=== PATIENT | female | born 1985 | race Caucasian/White ===

== ENCOUNTER 2023-05-23 20:40 | Inpatient (IN) | payer OTHER ==
--- NOTE | 2023-05-23 21:25 | ED ---
General Adult HPI - General Chief complaint: Seizure Stated complaint: Seizure Time Seen by Provider: 05/23/23 20:43 Source: patient, EMS, RN notes reviewed Limitations: altered mental status - History of Present Illness Initial comments: Patient is a pleasant 37-year-old female presenting to the emergency department with reported seizure. Patient states her found her having a seizure. Patient states she frequently gets seizures when she stops taking Xanax and heroin. Patient stopped taking Xanax and heroin yesterday. Patient complains of headache. Patient denies any injury. Patient feels achy all over as well. Patient states he normally feels like this when withdrawing. - Related Data Home Medications Medication Instructions Recorded Confirmed No Known Home Medications 05/23/23 05/23/23 Allergies Allergy/AdvReac Type Severity Reaction Status Date / Time No Known Allergies Allergy Verified 05/23/23 22:39 Review of Systems ROS Statement: Those systems with pertinent positive or pertinent negative responses have been documented in the HPI. ROS Other: All systems not noted in ROS Statement are negative. Constitutional: Denies: fever Eyes: Denies: eye pain ENT: Denies: ear pain Respiratory: Denies: cough Cardiovascular: Denies: chest pain Endocrine: Denies: fatigue Gastrointestinal: Reports: nausea Neurological: Reports: headache. Denies: weakness Past Medical History Additional Past Medical History / Comment(s): seizures History of Any Multi-Drug Resistant Organisms: None Reported Past Surgical History: Tubal Ligation Past Psychological History: Anxiety, Depression Smoking Status: Never smoker Past Alcohol Use History: None Reported Past Drug Use History: Heroin, Prescription Drug Abuse General Exam Limitations: altered mental status General appearance: alert, in no apparent distress Head exam: Present: atraumatic Eye exam: Present: normal appearance, PERRL, EOMI ENT exam: Present: normal oropharynx Neck exam: Present: normal inspection. Absent: tenderness, meningismus Respiratory exam: Present: normal lung sounds bilaterally Cardiovascular Exam: Present: regular rate, normal rhythm GI/Abdominal exam: Present: soft. Absent: tenderness Extremities exam: Present: normal inspection Neurological exam: Present: alert, CN II-XII intact. Absent: motor sensory deficit Expanded Neurological exam: Present: protecting the airway Speech: Present: fluid speech Cranial nerves: EOM's Intact: Normal Motor strength exam: RUE: 5, LUE: 5, RLE: 5, LLE: 5 Eye Response: (4) open spontaneously Motor Response: (6) obeys commands Verbal Response: (5) oriented Psychiatric exam: Present: normal affect, normal mood Skin exam: Present: normal color Course Vital Signs 05/23/23 05/23/23 05/23/23 20:43 21:15 22:00 Temperature 98.5 F Pulse Rate 75 80 68 Respiratory 16 18 18 Rate Blood Pressure 117/78 116/88 128/90 O2 Sat by Pulse 93 L 95 96 Oximetry EKG Findings - EKG Results: EKG: interpreted by ERMD, sinus rhythm, normal axis, normal QRS, normal ST/T Medical Decision Making - Medical Decision Making Was pt. sent in by a medical professional or institution (, PA, INTERNET ASSESSOR, urgent care, hospital, or fpc...) When possible be specific @ -No Did you speak to anyone other than the patient for history (EMS, parent, family, police, friend...)? What history was obtained from this source @ -No Did you review nursing and triage notes (agree or disagree)? Why? @ -I reviewed and agree with nursing and triage notes Were old charts reviewed (outside hosp., previous admission, EMS record, old EKG, old radiological studies, urgent care reports/EKG's, fpc records)? Report findings @ -No old charts were reviewed Differential Diagnosis (chest pain, altered mental status, abdominal pain women, abdominal pain men, vaginal bleeding, weakness, fever, dyspnea, syncope, headache, dizziness, GI bleed, back pain, seizure, CVA, palpatations, mental health, musculoskeletal)? @ -Differential Seizure: Recurrent seizure disorder, febrile seizure, alcohol withdrawal, stimulants, meningitis, encephalitis, intercranial hemorrhage, intracranial tumor, stroke, eclampsia, thyrotoxicosis, hypocalcemia, hyponatremia, hypernatremia, hypomagnesemia, psychogenic, this is not meant to be an all-inclusive list. EKG interpreted by me (3pts min.). @ -As above X-rays interpreted by me (1pt min.). @ -None done CT interpreted by me (1pt min.). @ -CT scan of the brain shows no acute process U/S interpreted by me (1pt. min.). @ -None done What testing was considered but not performed or refused? (CT, X-rays, U/S, labs)? Why? @ -None What meds were considered but not given or refused? Why? @ -None Did you discuss the management of the patient with other professionals (professionals i.e. , PA, INTERNET ASSESSOR, lab, RT, psych nurse, social services manager, structural steel ironworker, teacher, professional security officer, caser up)? Give summary @ -Case was discussed with Dr. Shafer, who will admit covering hospital call. Was smoking cessation discussed for >3mins.? @ -No Was critical care preformed (if so, how long)? @ -No Were there social determinants of health that impacted care today? How? (Homelessness, low income, unemployed, alcoholism, drug addiction, transportation, low edu. Level, literacy, decrease access to med. care, penitentiary, rehab)? @ -No Was there de-escalation of care discussed even if they declined (Discuss DNR or withdrawal of care, Hospice)? DNR status @ -No What co-morbidities impacted this encounter? (DM, HTN, Smoking, COPD, CAD, Cancer, CVA, ARF, Chemo, Hep., AIDS, mental health diagnosis, sleep apnea, morbid obesity)? @ -None Was patient admitted / discharged? Hospital course, mention meds given and route, prescriptions, significant lab abnormalities, going to OR and other pertinent info. @ -Patient reevaluated. Patient is still having nausea and emesis. Patient is drowsy. Patient will be admitted for fluids and monitoring for benzodiazepine withdrawal. Patient states she is taking approximately 4 mg daily of Xanax. Undiagnosed new problem with uncertain prognosis? @ -No Drug Therapy requiring intensive monitoring for toxicity (Heparin, Nitro, Insulin, Cardizem)? @ -No Were any procedures done? @ -No Diagnosis/symptom? @ -Seizure, benzodiazepine withdrawal, opiate withdrawal Acute, or Chronic, or Acute on Chronic? @ -Acute, acute, acute Uncomplicated (without systemic symptoms) or Complicated (systemic symptoms)? @ -Default Side effects of treatment? @ -No Exacerbation, Progression, or Severe Exacerbation? @ -No Poses a threat to life or bodily function? How? (Chest pain, USA, ID, pneumonia, PE, COPD, DKA, ARF, appy, cholecystitis, CVA, Diverticulitis, Homicidal, Suicidal, threat to staff... and all critical care pts) @ -No - Lab Data Result diagrams: 05/23/23 22:34 05/23/23 22:00 Lab Results 05/23/23 05/23/23 Range/Units 22:00 22:34 WBC 6.5 (3.8-10.6) k/uL RBC 5.03 (3.80-5.40) m/uL Hgb 14.3 (11.4-16.0) gm/dL Hct 43.7 (34.0-46.0) % MCV 86.9 (80.0-100.0) fL MCH 28.4 (25.0-35.0) pg MCHC 32.7 (31.0-37.0) g/dL RDW 13.9 (11.5-15.5) % Plt Count 295 (150-450) k/uL MPV 8.4 Neutrophils % 74 % Lymphocytes % 19 % Monocytes % 5 % Eosinophils % 1 % Basophils % 0 % Neutrophils # 4.9 (1.3-7.7) k/uL Lymphocytes # 1.3 (1.0-4.8) k/uL Monocytes # 0.3 (0-1.0) k/uL Eosinophils # 0.0 (0-0.7) k/uL Basophils # 0.0 (0-0.2) k/uL Sodium 143 (137-145) mmol/L Potassium 3.8 (3.5-5.1) mmol/L Chloride 110 H (98-107) mmol/L Carbon Dioxide 17 L (22-30) mmol/L Anion Gap 16 mmol/L BUN 10 (7-17) mg/dL Creatinine 0.38 L (0.52-1.04) mg/dL Est GFR (CKD-EPI)AfAm >90 (>60 ml/min/1.73 sqM) Est GFR (CKD-EPI)NonAf >90 (>60 ml/min/1.73 sqM) Glucose 115 H (74-99) mg/dL Calcium 10.1 (8.4-10.2) mg/dL Magnesium 2.4 H (1.6-2.3) mg/dL Total Bilirubin 0.6 (0.2-1.3) mg/dL AST 55 H (14-36) U/L ALT 51 H (4-34) U/L Alkaline Phosphatase 115 (38-126) U/L Total Protein 8.6 H (6.3-8.2) g/dL Albumin 4.9 (3.5-5.0) g/dL Serum Alcohol <10 mg/dL Disposition Clinical Impression: Generalized seizure, Opiate withdrawal, Benzodiazepine withdrawal Disposition: ADMITTED IP TO THIS [facility] Instructions (If sedation given, give patient instructions): Seizure/Epilepsy Discharge Instructions & Follow-Up Is patient prescribed a controlled substance at d/c from ED?: No Referrals: None,Stated [Primary Care Provider] - 1-2 days Time of Disposition: 23:24
[2023-05-23 22:35] LABS: ALT 51 U/L (4-34); AST 55 U/L (14-36); African American GFR (CKD) >90 (>60 ml/min/1.73 sqM); Albumin 4.9 g/dL (3.5-5.0); Alcohol <10 mg/dL; Alkaline Phosphatase 115 U/L (38-126); Anion Gap 16 mmol/L; Blood Urea Nitrogen 10 mg/dL (7-17); Calcium 10.1 mg/dL (8.4-10.2); Carbon Dioxide 17 mmol/L (22-30); Chloride 110 mmol/L (98-107); Glucose 115 mg/dL (74-99); Magnesium 2.4 mg/dL (1.6-2.3); Non-African American GFR(CKD) >90 (>60 ml/min/1.73 sqM); Potassium 3.8 mmol/L (3.5-5.1); Sodium 143 mmol/L (137-145); Total Bilirubin 0.6 mg/dL (0.2-1.3); Total Protein 8.6 g/dL (6.3-8.2)
[2023-05-23] MEDS: LORazepam 2 MG/ML INJ IV STA (22:36)
[2023-05-23] MEDS: SODIUM CHLORIDE 0.9% 1,000 ML IV STA (22:36)
[2023-05-23] MEDS: ONDANSETRON 4 MG/2 ML VIAL IVP STA (22:51)
[2023-05-23 22:58] LABS: Basophils % (A) 0 %; Eosinophils % (A) 1 %; HCT 43.7 % (34.0-46.0); HGB 14.3 gm/dL (11.4-16.0); Lymphocytes # (A) 1.3 k/uL (1.0-4.8); Lymphocytes % (A) 19 %; MCH 28.4 pg (25.0-35.0); MCHC 32.7 g/dL (31.0-37.0); MCV 86.9 fL (80.0-100.0); Mean Platelet Volume 8.4; Monocytes # (A) 0.3 k/uL (0-1.0); Monocytes % (A) 5 %; Neutrophils # (A) 4.9 k/uL (1.3-7.7); Neutrophils % (A) 74 %; Platelet Count 295 k/uL (150-450); RBC 5.03 m/uL (3.80-5.40); RDW 13.9 % (11.5-15.5); WBC 6.5 k/uL (3.8-10.6)
--- NOTE | 2023-05-23 23:14 | CT ---
EXAMINATION TYPE: CT brain wo con DATE OF EXAM: 05/23/2023 COMPARISON: None. HISTORY: seizure CT DLP: 1091.2 mGycm. Automated Exposure Control for Dose Reduction was Utilized. TECHNIQUE: CT scan of the head is performed without contrast. FINDINGS: There is no acute intracranial hemorrhage, mass effect, or midline shift identified. The ventricles and sulci are within normal limits in size. [place]-white matter differentiation is [place]. The globes are intact bilaterally. Mild mucosal thickening involving ethmoid sinuses bilaterally and right sphenoid sinus. IMPRESSION: No acute intracranial hemorrhage or midline shift is seen.
[2023-05-23] MEDS ORDERED: NALOXONE 0.4 MG/ML 1 ML VIAL IV PRN (23:24)
[2023-05-23] MEDS ORDERED: LORazepam 2 MG/ML INJ IV PRN (23:27)
[2023-05-23] MEDS: SODIUM CHLORIDE 0.9% 500 ML 500 ML IV STA (23:50)
[2023-05-24] MEDS: METOCLOPRAMIDE 5 MG/ML 2 ML VIAL IVP STA (00:23)
[2023-05-24] MEDS ORDERED: METOCLOPRAMIDE 5 MG/ML 2 ML VIAL IVP PRN (01:37)
--- NOTE | 2023-05-24 02:01 | P.HPIM ---
History of Present Illness H&P Date: 05/23/23 Chief Complaint: polysubstance abuse wwithdrawal 37-year-old female with history of polysubstance abuse and dependence benzos and opiates Patient provides very limited history due to being an distress from repeated nausea vomiting along with severe generalized aches and pain. She reports addiction to benzos and heroin she is trying to quit cold turkey which she has done in the past usually precipitates seizures episodes. She claims that today her found her having a seizure as she quit using the substances 2 days ago. For which she brought her to the hospital for evaluation Patient reports diffuse body aches chills, diffuse abdominal pain cramps, repeated nausea vomiting no hematemesis no coffee-ground vomiting no GI bleeding denies any fevers denies any cough denies any chest pain denies any trouble breathing. She reports that this is typical of her withdrawals when she quits drug of abuse Workup in the ED was done CT scan of the brain showed no acute intracranial pathology blood work reflected anion gap metabolic acidosis and mildly elevated liver enzymes Patient does admit to polysubstance abuse including heroin and Xanax She denies any sick known sick contacts denies any recent travel. Her has no symptoms of infection or GI upset like she is experiencing review of systems Pertinent positives as noted in HPI. All other systems were reviewed and are negative on exam Constitutional: Patient very restless and uncomfortable repeated nausea vomiting Eyes: Anicteric sclerae, moist conjunctiva, Pupils equal round reactive to light slightly dilated for room brightness ENMT: NC/AT Oropharynx clear, no erythema, or exudates Neck: Supple, no masses, or JVD No carotid bruits No thyromegaly Lungs: Clear to auscultation Clear to percussion Normal respiratory effort, no accessory muscle use Cardiovascular: Heart bradycardia No murmurs, gallops, or rubs No peripheral edema Abdominal: Soft Diffuse discomfort to deep palpation below, no guarding, rebound or rigidity Abdomen moving with respiration Normoactive bowel sounds Extremities: No digital cyanosis No clubbing Pedal pulses intact and symmetrical Radial pulses intact and symmetrical No calf tenderness Psychiatric: Alert and oriented to person, place and time Neuro Muscles Strength 5/5 in all 4 extremities Sensation to light touch grossly present throughout Past Medical History Additional Past Medical History / Comment(s): seizures History of Any Multi-Drug Resistant Organisms: None Reported Past Surgical History: Tubal Ligation Past Psychological History: Anxiety, Depression Smoking Status: Never smoker Past Alcohol Use History: None Reported Past Drug Use History: Heroin, Prescription Drug Abuse Medications and Allergies Home Medications Medication Instructions Recorded Confirmed Type No Known Home Medications 05/23/23 05/23/23 History Allergies Allergy/AdvReac Type Severity Reaction Status Date / Time No Known Allergies Allergy Verified 05/23/23 22:39 Physical Exam Vitals: Vital Signs Temp Pulse Resp BP Pulse Ox 05/24/23 01:00 54 L 18 140/77 99 05/24/23 00:00 52 L 18 141/78 99 05/23/23 23:45 48 L 18 99 05/23/23 22:00 68 18 128/90 96 05/23/23 21:15 80 18 116/88 95 05/23/23 20:43 98.5 F 75 16 117/78 93 L Intake and Output 05/23/23 05/23/23 05/24/23 14:59 22:59 06:59 Other: Weight 90.718 kg Results CBC & Chem 7: 05/23/23 22:34 05/23/23 22:00 Labs: Abnormal Lab Results - Last 24 Hours (Table) 05/23/23 Range/Units 22:00 Chloride 110 H (98-107) mmol/L Carbon Dioxide 17 L (22-30) mmol/L Creatinine 0.38 L (0.52-1.04) mg/dL Glucose 115 H (74-99) mg/dL Magnesium 2.4 H (1.6-2.3) mg/dL AST 55 H (14-36) U/L ALT 51 H (4-34) U/L Total Protein 8.6 H (6.3-8.2) g/dL Assessment and Plan Assessment: 37-year-old female with polysubstance abuse admits to benzos and heroin coming in trying to quit drug of abuse for the past 2 days claims that she had withdrawal seizure today I discussed case with ED doctor accepted the admission for refractory nausea vomiting with anion gap metabolic acidosis with anticipated length of stay more than 2 midnights Polysubstance abuse with severe withdrawal symptoms Refractory nausea vomiting with dehydration and anion gap metabolic acidosis Sinus bradycardia suspected secondary to repeated forceful nausea vomiting Withdrawal seizure secondary to withdrawal from benzos CT scan of the brain no acute intracranial pathology Continue with seizure precautions Plan Supportive care Ativan 1 mg every 6 hours as needed Zofran 4 mg IV push every 8 hours as needed Compazine 5 mg IV push every 4 hours as needed Benadryl 50 mg IV push once to control symptoms of severe nausea vomiting Very mildly elevated liver enzymes with AST 55 ALT 51 alk phos normal 115 bilirubin normal 0.6 Symptomatic control with Bentyl 10 mg p.o. 3 times daily as needed Toradol 50 mg IV push every 6 hours as needed Protonix IV push 40 mg twice daily due to unable to tolerate p.o. intake Aggressive IV fluid hydration patient received 1.5 L boluses in the ED will add another 1 L bolus then continue with normal saline at 130 cc/h Sinus bradycardia EKG shows no other acute ST changes this is suspected to be secondary to forceful repeated vomiting rule out other underlying cardiac causes. Check echocardiogram Cardiac monitoring If heart rate drops below 35 then will consider dopamine drip and ICU admission, and cardiology consult Patient counseled to quit drugs of abuse Unable to offer clonidine at this time due to sinus bradycardia White count unremarkable 6.5 hemoglobin 14.3 unremarkable Sodium 143 potassium 3.8 BUN 10 creatinine 0.38 Magnesium 2.4 Monitor electrolytes closely Serum alcohol level less than 10 Lactic acid 1.7 Full code DVT prophylaxis mechanical
[2023-05-24] MEDS: SODIUM CHLORIDE 0.9% 1,000 ML IV ONE (02:03)
[2023-05-24] MEDS: PANTOPRAZOLE 40 MG/10 ML VIAL IVP SCH (02:04)
[2023-05-24] MEDS: PANTOPRAZOLE 40 MG TABLET PO SCH (02:05)
[2023-05-24] MEDS: SODIUM CHLORIDE 0.9% 1,000 ML IV SCH (02:05)
[2023-05-24] MEDS: diphenhydrAMINE 50 MG/ML 1 ML VIAL IVP STA ×2 (04:31→20:57)
[2023-05-24 04:36] LABS: Cocaine Screen,Urine Not Detected (NotDetected); Phencyclidine Screen,Urine Not Detected (NotDetected); Urn Cannabinoid Scrn Detected (NotDetected)
[2023-05-24 04:37] LABS: Amphetamine Screen,Urine Not Detected (NotDetected); Barbiturate Screen,Urine Not Detected (NotDetected); Benzodiazepines Screen,Urine Detected (NotDetected); Methadone Screen, Urine Not Detected (NotDetected); Opiate Screen,Urine Not Detected (NotDetected); Oxycodone Screen, Urine Not Detected (NotDetected); Tricyclic Antidepressant,Urine Not Detected (NotDetected)
[2023-05-24 04:46] LABS: Appearance,Urine Clear (Clear); Bacteria,Urine Occasional /hpf; Bilirubin,Urine Negative (Negative); Blood,Urine Negative (Negative); Color,Urine Yellow; Glucose,Urine (UA) Negative (Negative); Ketones,Urine 4+ (Negative); Leukocyte Esterase,Urine Negative (Negative); Mucus,Urine Rare /hpf; Nitrite,Urine Negative (Negative); Protein,Urine 1+ (Negative); Specific Gravity,Urine 1.028 (1.001-1.035); Squamous Epithelial Cell,Urine 1 /hpf (0-4); Urobilinogen,Urine <2.0 mg/dL (<2.0); WBC,Urine 1 /hpf (0-5)
[2023-05-24] MEDS ORDERED: LORazepam 2 MG/ML INJ IV PRN ×2 (07:53)
[2023-05-24] MEDS: ENOXAPARIN 40 MG/0.4 ML SYRINGE SQ SCH (10:08)
[2023-05-24] MEDS: PROCHLORPERAZINE INJ 10 MG/2 ML VIAL IVP PRN (10:08)
--- NOTE | 2023-05-24 10:48 | P.PN ---
Subjective Progress Note Date: 05/24/23 Hospital Course: 37-year-old female with history of polysubstance abuse, dependent on benzos and opiates, presenting with generalized aches and pains. Patient tried to quit opiates and benzos and he may have precipitated seizure 2 days ago. She presented for further evaluation. On arrival, vital signs within normal limits, CBC unremarkable, BMP shows bicarb of 17, anion gap 16, lactate 1.7, creatinine 0.38, magnesium 2.4, total bili 0.6, AST 55, ALT 51, ALP 115, urinalysis negative, urine toxicology positive for benzos and marijuana, negative serum alcohol. EKG shows normal sinus rhythm. Brain CT shows no acute process. Patient admitted for severe withdrawal symptoms. Subjective: Patient seen and examined at bedside. No acute events overnight. Continues to have nausea and vomiting. Blood pressure more stable Pertinent positives and negatives as discussed above, a complete review of systems was performed and all other systems are negative. Vitals Signs Reviewed. General: Nontoxic, no distress, appears at stated age Derm: Warm, dry Head: Atraumatic, normocephalic, symmetric Eyes: EOMI, no lid lag, anicteric sclera Mouth: No lip lesion, mucus membranes moist Cardiovascular: S1S2 reg, no murmur Lungs: CTA bilateral, no rhonchi, no rales, no accessory muscle use Abdominal: Soft, nontender to palpation, no guarding, no appreciable organomegaly Ext: No gross muscle atrophy, no edema, no contractures Neuro: CN II-XI grossly intact, no focal neuro deficits Psych: Alert, oriented, appropriate affect Data Reviewed Today: Pertinent Labs: Urine toxicology positive for benzos and marijuana, urinalysis negative for nitrites and leukocyte esterase., Repeat CBC and CMP pending, will be reviewed when available Imaging: No new imaging Assessment and Plan: Polysubstance abuse with severe withdrawal symptoms Refractory nausea and vomiting with dehydration and anion gap metabolic acidosis Sinus bradycardia Possible withdrawal seizure Mild transaminitis -Continue supportive care -Patient currently on dicyclomine 10 3 times daily as needed for dyspepsia, Toradol 15 mg IV every 6 hours as needed for pain -Ativan IV as needed per CIWA score for benzodiazepine withdrawals, monitor for sedation -IV Ativan as needed for seizure-like activity -Continue seizure precautions, and neuroassessments -Zofran IV as needed and Compazine IV as needed for nausea vomiting -Continue IV fluids at 130 cc an hour, normal saline, blood pressure now more stable -Sinus bradycardia likely in the setting of continuous nausea and vomiting, echocardiogram pending -TSH ordered -Hepatitis panel pending DVT ppx: Lovenox Code status: Full code Anticipated discharge place: Pending clinical course Anticipated discharge time: Pending clinical course Due to severe withdrawal symptoms, observation status changed to inpatient. Objective - Vital Signs Vital signs: Vital Signs Temp 98.5 F 05/23/23 20:43 Pulse 62 05/24/23 07:45 Resp 18 05/24/23 07:45 BP 81/27 05/24/23 07:45 Pulse Ox 96 05/24/23 07:45 FiO2 Intake & Output 05/23/23 05/24/23 05/24/23 18:59 06:59 18:59 Weight 90.718 kg - Labs CBC & Chem 7: 05/23/23 22:34 05/23/23 22:00 Labs: Abnormal Lab Results - Last 24 Hours (Table) 05/23/23 05/24/23 Range/Units 22:00 04:05 Chloride 110 H (98-107) mmol/L Carbon Dioxide 17 L (22-30) mmol/L Creatinine 0.38 L (0.52-1.04) mg/dL Glucose 115 H (74-99) mg/dL Magnesium 2.4 H (1.6-2.3) mg/dL AST 55 H (14-36) U/L ALT 51 H (4-34) U/L Total Protein 8.6 H (6.3-8.2) g/dL Urine Protein 1+ H (Negative) Urine Ketones 4+ H (Negative) Urine Bacteria Occasional H (None) /hpf Urine Mucus Rare H (None) /hpf U Benzodiazepines Scrn Detected H (NotDetected) U Marijuana (THC) Screen Detected H (NotDetected)
--- NOTE | 2023-05-24 11:13 | CA ---
Transthoracic Echo Report Name: Kat Alicia Age: 37 Gender: F : 1985 Exam Date: 05/24/2023 07:44 Exam Location: [place] [facility] Ht (in): 60 Wt (lb): 200 Ordering Physician: Jah Wiley MD Attending/Referring Phys: [id number], Inez Punching Machine Operator Lee Ann Almaguer RCS Procedure CPT: Indications: bradychardia Cardiac Hx: Technical Quality: Fair Contrast 1: Total Dose (mL): Contrast 2: Total Dose (mL): MEASUREMENTS (Male / Female) Normal Values 2D ECHO RV Internal Dim ED PLAX 3.2 cm LVOT Diameter 2.1 cm LV Diastolic Volume MOD BP 94.5 cm??? 67 - 155 / 56 - 104 cm??? LV Systolic Volume MOD BP 29.2 cm??? 22 - 58 / 19 - 49 cm??? LV Ejection Fraction MOD BP 69.1 % >= 55 % LV Cardiac Index MOD BP 1820.9 cm???/min???m??? LV Diastolic Volume MOD 4C 76.7 cm??? LV Systolic Volume MOD 4C 27.3 cm??? LV Ejection Fraction MOD 4C 64.3 % LV Cardiac Index MOD 4C 1374.4 cm???/min???m??? LV Diastolic Length 4C 8.0 cm LV Systolic Length 4C 6.6 cm LV Diastolic Volume MOD 2C 107.6 cm??? LV Systolic Volume MOD 2C 31.0 cm??? LV Ejection Fraction MOD 2C 71.2 % LV Cardiac Index MOD 2C 2135.7 cm???/min???m??? LV Diastolic Length 2C 8.8 cm LV Systolic Length 2C 6.7 cm LA Volume 31.8 cm??? 18 - 58 / 22 - 52 cm??? LA Volume Index 15.8 cm???/m??? 16 - 28 cm???/m??? DOPPLER AV Peak Velocity 141.4 cm/s AV Peak Gradient 8.0 mmHg AV Mean Velocity 94.5 cm/s AV Mean Gradient 4.1 mmHg AV Velocity Time Integral 29.7 cm LVOT Peak Velocity 126.0 cm/s LVOT Peak Gradient 6.4 mmHg LVOT Velocity Time Integral 26.3 cm LVOT Stroke Volume 92.6 cm??? LVOT Stroke Volume Index 49.6 ml/m??? LVOT Cardiac Index 2581.1 cm???/min???m??? AV Area Cont Eq vti 3.1 cm??? AV Area Cont Eq pk 3.1 cm??? MV Area PHT 3.1 cm??? Mitral E Point Velocity 93.9 cm/s Mitral A Point Velocity 78.1 cm/s Mitral E to A Ratio 1.2 MV Deceleration Time 245.5 ms TR Peak Velocity 268.9 cm/s TR Peak Gradient 28.9 mmHg Right Ventricular Systolic Press 32.7 mmHg PV Peak Velocity 121.9 cm/s PV Peak Gradient 5.9 mmHg FINDINGS Left Ventricle Left ventricular ejection fraction is estimated at 60-65 %. Left ventricular cavity size normal. Left ventricular wall thickness normal. No obvious regional wall motion abnormalities. Right Ventricle Normal right ventricular size and function. Right ventricular systolic pressure within normal limits. Right Atrium Normal right atrial size. Left Atrium Normal left atrial size. Mitral Valve Structurally normal mitral valve. No mitral stenosis. Trace mitral regurgitation. No evidence for mitral valve prolapse. Aortic Valve Aortic valve not well visualized. No aortic valve stenosis or regurgitation. Tricuspid Valve Structurally normal tricuspid valve. No tricuspid stenosis. Mild tricuspid regurgitation. Pulmonic Valve Structurally normal pulmonic valve. No pulmonic stenosis. No pulmonic regurgitation. Pericardium No pericardial effusion. Aorta Normal size aortic root and proximal ascending aorta. CONCLUSIONS Normal LVsize and wall thickness. LVEF 60% No obvious regional wall motion abnormalities. No significant valvular dysfunction No significant diastolic dysfunction RVSP estimated at 35 mmHg Previewed by: Dr Hernando Leiva (Electronically Signed) Final Date: 24 May 2023 11:12
[2023-05-24] MEDS: ALPRAZolam 0.5 MG TAB PO SCH (12:58)
[2023-05-24 20:06] LABS: T4, Free (Free Thyroxine) 1.71 ng/dL (0.78-2.19)
[2023-05-24] MEDS: ONDANSETRON 4 MG/2 ML VIAL IVP PRN (21:09)
[2023-05-24 22:36] LABS: Basophils % (A) 0 %; Eosinophils # (A) 0.1 k/uL (0-0.7); Eosinophils % (A) 1 %; HCT 39.4 % (34.0-46.0); HGB 13.7 gm/dL (11.4-16.0); Lymphocytes % (A) 21 %; MCH 29.9 pg (25.0-35.0); MCHC 34.7 g/dL (31.0-37.0); MCV 86.2 fL (80.0-100.0); Mean Platelet Volume 8.6; Monocytes # (A) 0.5 k/uL (0-1.0); Monocytes % (A) 5 %; Neutrophils # (A) 6.7 k/uL (1.3-7.7); Neutrophils % (A) 72 %; Platelet Count 272 k/uL (150-450); RBC 4.57 m/uL (3.80-5.40); RDW 14.3 % (11.5-15.5); WBC 9.3 k/uL (3.8-10.6)
[2023-05-24 22:56] LABS: ALT 42 U/L (4-34); AST 45 U/L (14-36); African American GFR (CKD) >90 (>60 ml/min/1.73 sqM); Albumin 4.6 g/dL (3.5-5.0); Alkaline Phosphatase 94 U/L (38-126); Anion Gap 13 mmol/L; Blood Urea Nitrogen 11 mg/dL (7-17); Carbon Dioxide 19 mmol/L (22-30); Chloride 111 mmol/L (98-107); Glucose 118 mg/dL (74-99); Non-African American GFR(CKD) >90 (>60 ml/min/1.73 sqM); Potassium 3.3 mmol/L (3.5-5.1); Sodium 143 mmol/L (137-145); Total Bilirubin 0.6 mg/dL (0.2-1.3); Total Protein 7.7 g/dL (6.3-8.2)
[2023-05-25] MEDS: POTASSIUM CHLORIDE ER 20 MEQ TAB.ER PO STA (09:27)
[2023-05-25 10:32] LABS: Basophils % (A) 0 %; Eosinophils # (A) 0.1 k/uL (0-0.7); Eosinophils % (A) 1 %; HGB 13.3 gm/dL (11.4-16.0); Lymphocytes # (A) 1.5 k/uL (1.0-4.8); Lymphocytes % (A) 18 %; MCHC 35.1 g/dL (31.0-37.0); MCV 85.5 fL (80.0-100.0); Mean Platelet Volume 9.3; Monocytes # (A) 0.4 k/uL (0-1.0); Monocytes % (A) 5 %; Neutrophils % (A) 75 %; Platelet Count 264 k/uL (150-450); RBC 4.44 m/uL (3.80-5.40); RDW 14.1 % (11.5-15.5)
[2023-05-25 11:14] LABS: ALT 49 U/L (4-34); AST 61 U/L (14-36); African American GFR (CKD) >90 (>60 ml/min/1.73 sqM); Albumin 4.3 g/dL (3.5-5.0); Alkaline Phosphatase 92 U/L (38-126); Anion Gap 13 mmol/L; Blood Urea Nitrogen 7 mg/dL (7-17); Calcium 8.6 mg/dL (8.4-10.2); Carbon Dioxide 21 mmol/L (22-30); Chloride 110 mmol/L (98-107); Glucose 125 mg/dL (74-99); Magnesium 2.3 mg/dL (1.6-2.3); Non-African American GFR(CKD) >90 (>60 ml/min/1.73 sqM); Sodium 144 mmol/L (137-145); Total Bilirubin 0.7 mg/dL (0.2-1.3); Total Protein 7.5 g/dL (6.3-8.2)
--- NOTE | 2023-05-25 14:35 | P.PN ---
Subjective Progress Note Date: 05/25/23 Hospital Course: 37-year-old female with history of polysubstance abuse, dependent on benzos and opiates, presenting with generalized aches and pains. Patient tried to quit opiates and benzos and he may have precipitated seizure 2 days ago. She presented for further evaluation. On arrival, vital signs within normal limits, CBC unremarkable, BMP shows bicarb of 17, anion gap 16, lactate 1.7, creatinine 0.38, magnesium 2.4, total bili 0.6, AST 55, ALT 51, ALP 115, urinalysis negative, urine toxicology positive for benzos and marijuana, negative serum alcohol. EKG shows normal sinus rhythm. Brain CT shows no acute process. Patient admitted for severe withdrawal symptoms. Subjective: Patient seen today, appeared calm at bedside, did endorse some anxiety symptoms consistent with withdrawal, however, requested to minimize the amount of benzodiazepines she received since she was try to get off of these medications. She also endorses withdrawal from heroin. Blood work has been difficult to obtain due to blown out veins from history of IV drug abuse. Gen: In NAD, non-toxic HEENT: normocephalic, atraumatic, hearing acuity is intant, mucous membranes moist CVS: perfusing all extremities well, no pitting edema, Respiratory: symmetric chest expansion, no accessory muscle use, GI: soft, NTTP, ND, : no suprapubic tenderness, no CVA tenderness MSK/Derm: no rashes, cyanosis Neuro: CN II-XII intact, no motor weakness, Psych: cooperative, euthymic mood, judgment and insight is intact Assessment and Plan: Polysubstance abuse with severe withdrawal symptoms Refractory nausea and vomiting with dehydration and anion gap metabolic acidosis Sinus bradycardia Possible withdrawal seizure Mild transaminitis -Continue supportive care -Patient currently on dicyclomine 10 3 times daily as needed for dyspepsia, Toradol 15 mg IV every 6 hours as needed for pain -Ativan IV as needed per CIWA score for benzodiazepine withdrawals, monitor for sedation -IV Ativan as needed for seizure-like activity -Continue seizure precautions, and neuroassessments -Zofran IV as needed and Compazine IV as needed for nausea vomiting -Continue IV fluids at 130 cc an hour, normal saline, blood pressure now more stable -Sinus bradycardia likely in the setting of continuous nausea and vomiting, echocardiogram pending -TSH 0.245, free T4 is 1.71 -Hepatitis panel pending -Added clonidine 0.1mg TID and MIMA 100mg TID today DVT ppx: Lovenox Code status: Full code Anticipated discharge place: Pending clinical course Anticipated discharge time: Pending clinical course Due to severe withdrawal symptoms, observation status changed to inpatient. Objective - Vital Signs Vital signs: Vital Signs Temp 98.5 F 05/25/23 09:30 Pulse 66 05/25/23 11:20 Resp 16 05/25/23 11:20 BP 131/83 05/25/23 11:20 Pulse Ox 99 05/25/23 11:20 FiO2 Intake & Output 05/24/23 05/25/23 05/25/23 18:59 06:59 18:59 Intake Total 550 Balance 550 Weight 90.718 kg Intake: IV 10 Invasive Line 2 10 Oral 540 Other: Voiding Method Diaper Diaper Diaper # Voids 1 2 2 # Bowel Movements 1 - Labs CBC & Chem 7: 05/25/23 10:10 05/25/23 10:10 Labs: Abnormal Lab Results - Last 24 Hours (Table) 05/23/23 05/24/23 05/25/23 Range/Units 22:00 22:22 10:10 Potassium 3.3 L 3.0 L (3.5-5.1) mmol/L Chloride 111 H 110 H (98-107) mmol/L Carbon Dioxide 19 L 21 L (22-30) mmol/L Creatinine 0.42 L 0.39 L (0.52-1.04) mg/dL Glucose 118 H 125 H (74-99) mg/dL AST 45 H 61 H (14-36) U/L ALT 42 H 49 H (4-34) U/L TSH 0.245 L (0.465-4.680) mIU/L
[2023-05-25 16:07] LABS: Hepatitis C IgG Antibody Reactive (Non-Reactive)
[2023-05-25] MEDS: cloNIDine HCL 0.1 MG TAB PO SCH (16:13)
[2023-05-25] MEDS: GABAPENTIN 100 MG CAP PO SCH (16:13)
[2023-05-25 16:45] LABS: Hepatitis A Antibody IgM Nonreactive; Hepatitis B Core IgM Nonreactive; Hepatitis B Surface Antigen Nonreactive
[2023-05-25] MEDS: KETOROLAC 15 MG/ML 1 ML VIAL IVP PRN (21:06)
[2023-05-26] MEDS: ACETAMINOPHEN TAB 325 MG TAB PO PRN (00:35)
[2023-05-26] MEDS: DICYCLOMINE 10 MG CAP PO PRN (08:45)
--- NOTE | 2023-05-26 10:27 | P.CRDCN ---
History of Present Illness History of present illness: HISTORY OF PRESENT ILLNESS: This is a 37-year-old female with a past medical history significant for polysubstance abuse. 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 We have been asked to see the patient in consultation for second-degree block type II. Patient examined at the bedside. Patient is awake and alert at the time of examination. She is not talking at the time of examination. She appears comfortable and in no acute distress. Telemetry reviewed revealing sinus mechanism with PACs. There is no evidence of second-degree AV block. DIAGNOSTICS: - EKG reveals sinus mechanism with no signs of acute ischemia. - Laboratory data: WBC 8.0. Hemoglobin 13.3. Platelet count 264. Sodium 144. Potassium 3.0. BUN 7. Creatinine 0.39. - Current home cardiac medications include none. - Echocardiogram completed this admission reveals ejection fraction 60 to 65% no obvious regional wall motion abnormalities and no significant valvular dysfunction REVIEW OF SYSTEMS: At the time of my exam: Unable to obtain thorough review of systems as patient is not answering questions at the time of evaluation PHYSICAL EXAM: VITAL SIGNS: Reviewed. GENERAL: Well-developed in no acute distress. HEENT: Head is normocephalic. Pupils are equal, round. Sclerae anicteric. Mucous membranes of the mouth are moist. Neck supple. No JVD or thyromegaly LUNGS: Respirations even and unlabored. Lungs essentially clear to auscultation bilaterally. HEART: Regular rate and rhythm. S1 and S2 heard. ABDOMEN: Soft. Nondistended. Nontender. EXTREMITIES: Normal range of motion. No clubbing or cyanosis. Peripheral pulses intact. No lower extremity edema NEUROLOGIC: Awake and alert. ASSESSMENT: Polysubstance abuse Nausea and vomiting Second degree AV block, ruled out Possible seizure secondary to withdrawal PLAN: Telemetry reviewed with no evidence of second-degree AV block No further inpatient recommendations from a cardiac standpoint We will sign off. Please reconsult. Nurse practitioner note has been reviewed by physician. Signing provider agrees with the documented findings, assessment, and plan of care documented by PAI GOW DEALER as a scribe. Past Medical History Additional Past Medical History / Comment(s): seizures History of Any Multi-Drug Resistant Organisms: None Reported Past Surgical History: Tubal Ligation Past Anesthesia/Blood Transfusion Reactions: No Reported Reaction Past Psychological History: Anxiety, Depression Smoking Status: Current every day smoker Past Alcohol Use History: None Reported Past Drug Use History: Heroin, Prescription Drug Abuse - Past Family History Father History Unknown: Yes Medications and Allergies Home Medications Medication Instructions Recorded Confirmed Type No Known Home Medications 05/23/23 05/23/23 History Allergies Allergy/AdvReac Type Severity Reaction Status Date / Time No Known Allergies Allergy Verified 05/23/23 22:39 Physical Exam Vitals: Vital Signs Temp Pulse Resp BP Pulse Ox 05/26/23 04:00 97.9 F 50 L 18 124/85 97 05/26/23 00:00 97.8 F 61 18 107/62 97 05/25/23 20:00 97.5 F L 84 20 139/76 99 05/25/23 16:10 63 16 141/84 99 05/25/23 14:00 16 05/25/23 11:20 66 16 131/83 99 05/25/23 09:30 98.5 F 81 18 146/83 100 Intake and Output 05/25/23 05/26/23 05/26/23 22:59 06:59 14:59 Intake Total 390 1610 Output Total 540 Balance -150 1610 Intake: Intake, IV Titration 390 910 Amount Sodium Chloride 0.9% 1, 390 910 000 ml @ 130 mls/hr IV . Q7H42M [facility] Rx#:[id number] Oral 700 Output: Urine 540 Other: Voiding Method Diaper Diaper Results 05/25/23 10:10 05/25/23 10:10 Cardiac Enzymes 05/25/23 Range/Units 10:10 AST 61 H (14-36) U/L CBC 05/25/23 Range/Units 10:10 WBC 8.0 (3.8-10.6) k/uL RBC 4.44 (3.80-5.40) m/uL Hgb 13.3 (11.4-16.0) gm/dL Hct 38.0 (34.0-46.0) % Plt Count 264 (150-450) k/uL Comprehensive Metabolic Panel 05/25/23 Range/Units 10:10 Sodium 144 (137-145) mmol/L Potassium 3.0 L (3.5-5.1) mmol/L Chloride 110 H (98-107) mmol/L Carbon Dioxide 21 L (22-30) mmol/L BUN 7 (7-17) mg/dL Creatinine 0.39 L (0.52-1.04) mg/dL Glucose 125 H (74-99) mg/dL Calcium 8.6 (8.4-10.2) mg/dL AST 61 H (14-36) U/L ALT 49 H (4-34) U/L Alkaline Phosphatase 92 (38-126) U/L Total Protein 7.5 (6.3-8.2) g/dL Albumin 4.3 (3.5-5.0) g/dL Current Medications Generic Name Dose Route Start Last Admin Trade Name Freq PRN Reason Stop Dose Admin Acetaminophen 650 mg 05/23/23 23:24 05/26/23 00:35 Acetaminophen Tab 325 Mg Tab PO 650 mg Q6HR PRN Administration Mild Pain or Fever > 100.5 Clonidine 0.1 mg 05/25/23 16:00 05/25/23 21:06 Clonidine Hcl 0.1 Mg Tab PO 0.1 mg TID PAOLO Administration Dicyclomine HCl 10 mg 05/24/23 01:37 Dicyclomine 10 Mg Cap PO TID PRN Dyspepsia Enoxaparin Sodium 40 mg 05/24/23 09:00 05/25/23 09:26 Enoxaparin 40 Mg/0.4 Ml Syringe SQ 40 mg DAILY PAOLO Administration Gabapentin 100 mg 05/25/23 16:00 05/25/23 21:06 Gabapentin 100 Mg Cap PO 100 mg TID PAOLO Administration Sodium Chloride 1,000 mls @ 130 mls/hr 05/23/23 23:30 05/26/23 06:09 Saline 0.9% IV Not Given .Q7H42M [facility] Ketorolac Tromethamine 15 mg 05/24/23 01:44 05/26/23 03:22 Ketorolac 15 Mg/Ml 1 Ml Vial IVP 05/29/23 01:44 15 mg Q6HR PRN Administration Pain Lorazepam 1 mg 05/23/23 23:27 Lorazepam 2 Mg/Ml Inj IV Q8HR PRN Seizures Lorazepam 1 mg 05/24/23 07:53 Lorazepam 2 Mg/Ml Inj IV Q1HR PRN CIWA 10 to 15 Lorazepam 1 mg 05/24/23 07:53 Lorazepam 2 Mg/Ml Inj IV Q2HR PRN CIWA 8 or 9 Lorazepam 2 mg 05/24/23 07:53 Lorazepam 2 Mg/Ml Inj IV 05/26/23 07:53 Q10M PRN CIWA 16 or higher Lorazepam 1 mg 05/24/23 20:45 Lorazepam 2 Mg/Ml Inj IV Q6HR PRN Anxiety Naloxone HCl 0.2 mg 05/23/23 23:24 Naloxone 0.4 Mg/Ml 1 Ml Vial IV Q2M PRN Opioid Reversal Ondansetron HCl 4 mg 05/23/23 23:24 05/26/23 00:36 Ondansetron 4 Mg/2 Ml Vial IVP 4 mg Q8HR PRN Administration Nausea And Vomiting Pantoprazole Sodium 40 mg 05/24/23 02:00 05/25/23 21:06 Pantoprazole 40 Mg/10 Ml Vial IVP 40 mg BID PAOLO Administration Prochlorperazine Edisylate 5 mg 05/24/23 01:43 05/26/23 03:22 Prochlorperazine Inj 10 Mg/2 Ml Vial IVP 5 mg Q4HR PRN Administration Nausea And Vomiting Intake and Output 05/25/23 05/26/23 05/26/23 22:59 06:59 14:59 Intake Total 390 1610 Output Total 540 Balance -150 1610 Intake: Intake, IV Titration 390 910 Amount Sodium Chloride 0.9% 1, 390 910 000 ml @ 130 mls/hr IV . Q7H42M [facility] Rx#:[id number] Oral 700 Output: Urine 540 Other: Voiding Method Diaper Diaper 05/25/23 10:10 05/25/23 10:10
--- NOTE | 2023-05-26 11:30 | P.PN ---
Subjective Progress Note Date: 05/26/23 Hospital Course: 37-year-old female with history of polysubstance abuse, dependent on benzos and opiates, presenting with generalized aches and pains. Patient tried to quit opiates and benzos and he may have precipitated seizure 2 days ago. She presented for further evaluation. On arrival, vital signs within normal limits, CBC unremarkable, BMP shows bicarb of 17, anion gap 16, lactate 1.7, creatinine 0.38, magnesium 2.4, total bili 0.6, AST 55, ALT 51, ALP 115, urinalysis negative, urine toxicology positive for benzos and marijuana, negative serum alcohol. EKG shows normal sinus rhythm. Brain CT shows no acute process. Patient admitted for severe withdrawal symptoms. Subjective: Patient seen today, appeared calm. C/o poor appetite and nausea still and has had minimal PO intake. Gen: In NAD, non-toxic HEENT: normocephalic, atraumatic, hearing acuity is intant, mucous membranes [address] CVS: perfusing all extremities well, no pitting edema, Respiratory: symmetric chest expansion, no accessory muscle use, GI: soft, NTTP, ND, : no suprapubic tenderness, no CVA tenderness MSK/Derm: no rashes, cyanosis Neuro: CN II-XII intact, no motor weakness, Psych: cooperative, euthymic mood, judgment and insight is intact Assessment and Plan: Polysubstance abuse with severe withdrawal symptoms Refractory nausea and vomiting with dehydration and anion gap metabolic acidosis Sinus bradycardia Possible withdrawal seizure Mild transaminitis -Patient currently on dicyclomine 10 3 times daily as needed for dyspepsia, Toradol 15 mg IV every 6 hours as needed for pain -Ativan IV as needed per CIWA score for benzodiazepine withdrawals, monitor for sedation -IV Ativan as needed for seizure-like activity -Zofran IV as needed and Compazine IV as needed for nausea vomiting -Continue IV fluids at 130 cc an hour, normal saline, blood pressure now more stable -TSH 0.245, free T4 is 1.71 -Hepatitis panel has + IgG for Hep C, RNA count is pending -Continue clonidine 0.1mg TID and MIMA 100mg TID today DVT ppx: Lovenox Code status: Full code Anticipated discharge place: Home Anticipated discharge time: Tomorrow Objective - Vital Signs Vital signs: Vital Signs Temp 98.7 F 05/26/23 08:00 Pulse 52 L 05/26/23 08:00 Resp 18 05/26/23 08:00 BP 138/82 05/26/23 08:00 Pulse Ox 97 05/26/23 08:00 FiO2 Intake & Output 05/25/23 05/26/23 05/26/23 18:59 06:59 18:59 Intake Total 2000 0 Output Total 540 Balance 1460 0 Weight 90.718 kg Intake: Intake, IV Titration 1300 Amount Sodium Chloride 0.9% 1, 1300 000 ml @ 130 mls/hr IV . Q7H42M [facility] Rx#:[id number] Oral 700 0 Output: Urine 540 Other: Voiding Method Diaper Diaper Diaper # Voids 2 1 # Bowel Movements 1 - Labs CBC & Chem 7: 05/25/23 10:10 05/25/23 10:10 Labs: Abnormal Lab Results - Last 24 Hours (Table) 05/25/23 Range/Units 10:10 Hep C IgG Ab Reactive A (Non-Reactive)
--- NOTE | 2023-05-27 15:57 | P.PN ---
Subjective Progress Note Date: 05/27/23 Hospital Course: 37-year-old female with history of polysubstance abuse, dependent on benzos and opiates, presenting with generalized aches and pains. Patient tried to quit opiates and benzos and he may have precipitated seizure 2 days ago. She presented for further evaluation. On arrival, vital signs within normal limits, CBC unremarkable, BMP shows bicarb of 17, anion gap 16, lactate 1.7, creatinine 0.38, magnesium 2.4, total bili 0.6, AST 55, ALT 51, ALP 115, urinalysis negative, urine toxicology positive for benzos and marijuana, negative serum alcohol. EKG shows normal sinus rhythm. Brain CT shows no acute process. Patient admitted for severe withdrawal symptoms. Subjective: Patient seen today, appeared calm. C/o poor appetite and nausea still and has had minimal PO intake. Gen: In NAD, non-toxic HEENT: normocephalic, atraumatic, hearing acuity is intant, mucous membranes [address] CVS: perfusing all extremities well, no pitting edema, Respiratory: symmetric chest expansion, no accessory muscle use, GI: soft, NTTP, ND, : no suprapubic tenderness, no CVA tenderness MSK/Derm: no rashes, cyanosis Neuro: CN II-XII intact, no motor weakness, Psych: cooperative, euthymic mood, judgment and insight is intact Assessment and Plan: Polysubstance abuse with severe withdrawal symptoms Refractory nausea and vomiting with dehydration and anion gap metabolic acidosis Sinus bradycardia Possible withdrawal seizure Mild transaminitis -Patient currently on dicyclomine 10 3 times daily as needed for dyspepsia, Toradol 15 mg IV every 6 hours as needed for pain -Ativan IV as needed per CIWA score for benzodiazepine withdrawals, monitor for sedation -IV Ativan as needed for seizure-like activity -Zofran IV as needed and Compazine IV as needed for nausea vomiting -Continue IV fluids at 130 cc an hour, normal saline, blood pressure now more stable -TSH 0.245, free T4 is 1.71 -Hepatitis panel has + IgG for Hep C, RNA count is pending -Continue clonidine 0.1mg TID and MIMA 100mg TID today DVT ppx: Lovenox Code status: Full code Anticipated discharge place: Home Anticipated discharge time: Tomorrow Objective - Vital Signs Vital signs: Vital Signs Temp 97.7 F 05/27/23 13:53 Pulse 52 L 05/27/23 13:53 Resp 16 05/27/23 13:53 BP 127/81 05/27/23 13:53 Pulse Ox 98 05/27/23 13:53 FiO2 Intake & Output 05/26/23 05/27/23 05/27/23 18:59 06:59 18:59 Intake Total 1040 Balance 1040 Intake: Intake, IV Titration 1040 Amount Sodium Chloride 0.9% 1, 1040 000 ml @ 130 mls/hr IV . Q7H42M [facility] Rx#:[id number] Oral 0 Other: Voiding Method Diaper Toilet # Voids 1 1 # Bowel Movements 1 1 - Labs CBC & Chem 7: 05/25/23 10:10 05/25/23 10:10
[2023-05-28] MEDS: LORazepam 2 MG/ML INJ IV PRN (09:16)
[2023-05-28 09:39] LABS: Basophils % (A) 0 %; Eosinophils # (A) 0.1 k/uL (0-0.7); Eosinophils % (A) 1 %; HGB 14.5 gm/dL (11.4-16.0); Lymphocytes # (A) 2.7 k/uL (1.0-4.8); Lymphocytes % (A) 25 %; MCH 29.1 pg (25.0-35.0); MCHC 34.4 g/dL (31.0-37.0); MCV 84.6 fL (80.0-100.0); Monocytes # (A) 0.3 k/uL (0-1.0); Monocytes % (A) 3 %; Neutrophils # (A) 7.5 k/uL (1.3-7.7); Neutrophils % (A) 70 %; RBC 4.96 m/uL (3.80-5.40); RDW 13.9 % (11.5-15.5); WBC 10.8 k/uL (3.8-10.6)
[2023-05-28 10:00] LABS: African American GFR (CKD) >90 (>60 ml/min/1.73 sqM); Anion Gap 13 mmol/L; Blood Urea Nitrogen 10 mg/dL (7-17); Calcium 8.4 mg/dL (8.4-10.2); Carbon Dioxide 21 mmol/L (22-30); Chloride 105 mmol/L (98-107); Glucose 102 mg/dL (74-99); Non-African American GFR(CKD) >90 (>60 ml/min/1.73 sqM); Potassium 2.9 mmol/L (3.5-5.1); Sodium 139 mmol/L (137-145)
[2023-05-28 11:48] LABS: RBC Morphology Normal
[2023-05-28 11:50] LABS: Platelet Count 181 k/uL (150-450)
--- NOTE | 2023-05-28 12:07 | P.PN ---
Subjective Progress Note Date: 05/28/23 Hospital Course: 37-year-old female with history of polysubstance abuse, dependent on benzos and opiates, presenting with generalized aches and pains. Patient tried to quit opiates and benzos and he may have precipitated seizure 2 days ago. She presented for further evaluation. On arrival, vital signs within normal limits, CBC unremarkable, BMP shows bicarb of 17, anion gap 16, lactate 1.7, creatinine 0.38, magnesium 2.4, total bili 0.6, AST 55, ALT 51, ALP 115, urinalysis negative, urine toxicology positive for benzos and marijuana, negative serum alcohol. EKG shows normal sinus rhythm. Brain CT shows no acute process. Patient admitted for severe withdrawal symptoms. Subjective: Patient seen today, appeared calm. C/o poor appetite and nausea still and now complaining of diarrhea as well Gen: In NAD, non-toxic HEENT: normocephalic, atraumatic, hearing acuity is intant, mucous membranes moist CVS: perfusing all extremities well, no pitting edema, Respiratory: symmetric chest expansion, no accessory muscle use, GI: soft, NTTP, ND, : no suprapubic tenderness, no CVA tenderness MSK/Derm: no rashes, cyanosis Neuro: CN II-XII intact, no motor weakness, Psych: cooperative, euthymic mood, judgment and insight is intact Assessment and Plan: Polysubstance abuse with severe withdrawal symptoms Refractory nausea and vomiting with dehydration and anion gap metabolic acidosis Sinus bradycardia Possible withdrawal seizure Mild transaminitis -Patient currently on dicyclomine 10 3 times daily as needed for dyspepsia, Toradol 15 mg IV every 6 hours as needed for pain -Ativan IV as needed per CIWA score for benzodiazepine withdrawals, monitor for sedation -IV Ativan as needed for seizure-like activity -Zofran IV as needed and Compazine IV as needed for nausea vomiting -Continue IV fluids at 130 cc an hour, normal saline, blood pressure now more stable -TSH 0.245, free T4 is 1.71 -Hepatitis panel has + IgG for Hep C, RNA count is pending -Continue clonidine 0.1mg TID and MIMA 100mg TID today -Add loperamide PRN DVT ppx: Lovenox Code status: Full code Anticipated discharge place: Home Anticipated discharge time: TBD Objective - Vital Signs Vital signs: Vital Signs Temp 97.3 F L 05/28/23 08:00 Pulse 55 L 05/28/23 08:00 Resp 20 05/28/23 08:00 BP 138/82 05/28/23 08:00 Pulse Ox 96 05/28/23 08:05 FiO2 Intake & Output 05/27/23 05/28/23 05/28/23 18:59 06:59 18:59 Other: Voiding Method Toilet # Voids 1 4 1 # Bowel Movements 1 2 - Labs CBC & Chem 7: 05/28/23 09:32 05/28/23 09:32 Labs: Abnormal Lab Results - Last 24 Hours (Table) 05/28/23 05/28/23 Range/Units 09:32 09:32 WBC 10.8 H (3.8-10.6) k/uL Potassium 2.9 L (3.5-5.1) mmol/L Carbon Dioxide 21 L (22-30) mmol/L Creatinine 0.43 L (0.52-1.04) mg/dL Glucose 102 H (74-99) mg/dL
[2023-05-28] MEDS: LOPERAMIDE 2 MG CAP PO PRN (17:03)
[2023-05-29 10:56] LABS: HCT 38.7 % (34.0-46.0); HGB 13.7 gm/dL (11.4-16.0); MCH 29.5 pg (25.0-35.0); MCHC 35.5 g/dL (31.0-37.0); MCV 83.3 fL (80.0-100.0); Mean Platelet Volume 10.6; Platelet Count 275 k/uL (150-450); RBC 4.65 m/uL (3.80-5.40); RDW 13.8 % (11.5-15.5); WBC 10.3 k/uL (3.8-10.6)
[2023-05-29 11:02] LABS: ALT 69 U/L (4-34); AST 48 U/L (14-36); African American GFR (CKD) >90 (>60 ml/min/1.73 sqM); Albumin 4.1 g/dL (3.5-5.0); Albumin/Globulin Ratio 1.5; Alkaline Phosphatase 84 U/L (38-126); Anion Gap 12 mmol/L; Blood Urea Nitrogen 6 mg/dL (7-17); Calcium 8.8 mg/dL (8.4-10.2); Carbon Dioxide 26 mmol/L (22-30); Chloride 104 mmol/L (98-107); Globulin 2.8 g/dL; Glucose 104 mg/dL (74-99); Magnesium 2.1 mg/dL (1.6-2.3); Non-African American GFR(CKD) >90 (>60 ml/min/1.73 sqM); Potassium 2.8 mmol/L (3.5-5.1); Sodium 142 mmol/L (137-145); Total Bilirubin 0.8 mg/dL (0.2-1.3); Total Protein 6.9 g/dL (6.3-8.2)
--- NOTE | 2023-05-29 14:08 | P.PN ---
Subjective Progress Note Date: 05/29/23 Hospital course: Patient is a 37-year-old female with a past medical history of polysubstance abuse including abuse of benzodiazepines and heroin. She presented to the emergency department on 05/23/2023 with intractable nausea and vomiting and generalized bodyaches and pains. She has reportedly been trying to quit using benzodiazepines and heroin but believes this resulted in a seizure. She underwent full evaluation in the emergency department. Vital signs upon arrival show blood pressure 117/78, heart rate 75, respiratory rate 16, temp 98.5 F, and SpO2 of 93% on room air. EKG completed showing normal sinus rhythm at [address] brain completed negative for acute intracranial process. During hospitalization patient reportedly went into a second-degree type II heart block and cardiology was consulted. Echocardiogram was completed showing an EF of 60% with no significant valvular or structural abnormality reported. Cardiology reviewing telemetry reports stating no evidence of second-degree AV block and no further inpatient recommendations from cardiac standpoint and signed off. Patient remained hospitalized with intractable nausea and vomiting requiring continuous IV fluid hydration and replacement of electrolyte imbalances. Physical exam: Vital signs reviewed and stable. General: Nontoxic, no distress and appears stated age. Derm: Skin warm and dry, normal coloration for ethnicity. Head: Atraumatic, normocephalic and symmetric. Eyes: EOMs intact, no lid lag, and anicteric sclera Mouth: no lip lesions, mucus membranes moist Cardiovascular: regular rate and rhythm with normal S1S2, no murmur, positive posterior tibial pulses bilaterally, and cap refill < 2 seconds. Lungs: Respirations even, regular, and unlabored on room air. Lungs CTA bilaterally, no rhonchi, no rales, no wheezing, and no accessory muscle usage. Abdominal: soft, nontender to palpation, no guarding, no appreciable organomegaly Ext: ROM intact. No gross muscle atrophy, no edema, no contractures Neuro: Speech clear, face symmetrical and CN II-XII grossly intact with no noted focal neuro deficits Psych: Alert and oriented to person, place, time, and situation. Appropriate and pleasant affect. Assessment and Plan of Care: Polysubstance abuse with severe withdrawal symptoms Refractory nausea and vomiting with dehydration and high anion gap metabolic acidosis Sinus bradycardia Possible withdrawal seizure Mild transaminitis -Patient currently on dicyclomine 10 mg 3 times daily as needed for dyspepsia, Toradol 15 mg IVP every 6 hours as needed for pain -Ativan IV as needed per CIWA score for benzodiazepine withdrawals, monitor for sedation -IV Ativan as needed for seizure-like activity -Zofran 4 mg IVP as needed for nausea and Compazine 10 mg IVP as needed for persistent nausea with vomiting. -Received IV fluid hydration, acidosis resolved. -Continue with gentle IV fluid hydration with 0.9% normal saline at 100 cc/h until vomiting has resolved. -TSH 0.245, free T4 is 1.71 -Hepatitis panel has + IgG for Hep C, RNA quant is less than 15. -Continue clonidine 0.1mg TID and Neurontin 100 mg TID today -Continue Imodium 2 mg p.o. 4 times daily as needed for diarrhea Hypokalemia Orders placed for 40 mEq potassium chloride IVPB along with K-Dur 40 mEq to total replacement dose of 80 mEq for current potassium level of 2.8. Data reviewed: Morning labs reviewed. CBC unremarkable. BMP revealing hypokalemia with potassium of 2.8 and improvement of high anion gap metabolic acidosis with ch loride of 104, bicarb 26, and anion gap of 12. Liver profile elevated but stable with AST of 48 and ALT of 69. Vital signs reviewed. Blood pressure 122/78, heart rate 50, respiratory rate 15, temp 97.6 F, and SpO2 of 98% on room air. CODE STATUS: Full code DVT prophylaxis: Lovenox Anticipated discharge date: Likely tomorrow morning if vomiting and diarrhea resolves. Anticipated discharge place: Home Patient was seen independently by Nurse Pracitioner. This document was prepared using [email or web address] dictation software. Please allow for errors in junior marketing associate, while rare they do occur I reviewed the documentation as provided by the PRICE above, who is the original author of this note. I agree with the documented assessment and plan, with the following changes: none Objective - Vital Signs Vital signs: Vital Signs Temp 97.6 F 05/29/23 07:17 Pulse 50 L 05/29/23 07:17 Resp 15 05/29/23 07:17 BP 122/78 05/29/23 07:17 Pulse Ox 98 05/29/23 07:17 FiO2 Intake & Output 05/28/23 05/29/23 05/29/23 18:59 06:59 18:59 Intake Total 118 Balance 118 Intake: Oral 118 Other: Voiding Method Toilet # Voids 4 3 1 # Bowel Movements 1 1 1 - Labs CBC & Chem 7: 05/29/23 10:02 05/29/23 10:02 Labs: Abnormal Lab Results - Last 24 Hours (Table) 05/28/23 05/28/23 Range/Units 09:32 09:32 WBC 10.8 H (3.8-10.6) k/uL Potassium 2.9 L (3.5-5.1) mmol/L Carbon Dioxide 21 L (22-30) mmol/L Creatinine 0.43 L (0.52-1.04) mg/dL Glucose 102 H (74-99) mg/dL
[2023-05-29 14:09] VITALS: RESP 20
[2023-05-29 14:44] LABS: HCV Qualitative Result DETECTED (Not detected); HCV Quant Log 1.28 (<1.08); HCV Quantitative Result 19 IU/mL (<12)
[2023-05-29] MEDS: POTASSIUM CHLORIDE ER 20 MEQ TAB.ER PO STA (15:40)
[2023-05-29] MEDS: POTASSIUM CHLORIDE 10 MEQ in WATER FOR INJECTION 1 100ML.BAG IVPB SCH (15:41)
[2023-05-29] MEDS: SODIUM CHLORIDE 0.9% 1,000 ML IV SCH (15:41)
[2023-05-29] MEDS: LORazepam 2 MG/ML INJ IV PRN (23:13)
[2023-05-30 09:12] VITALS: BP 107/72; PULSE 75; TEMP 98
[2023-05-30 09:22] LABS: HCT 40.1 % (34.0-46.0); HGB 13.6 gm/dL (11.4-16.0); MCH 29.1 pg (25.0-35.0); MCHC 33.9 g/dL (31.0-37.0); MCV 85.9 fL (80.0-100.0); Mean Platelet Volume 10.8; Platelet Count 259 k/uL (150-450); Poikilocytosis Slight; RBC 4.67 m/uL (3.80-5.40); RDW 14.5 % (11.5-15.5); WBC 8.9 k/uL (3.8-10.6)
[2023-05-30 09:26] LABS: ALT 75 U/L (4-34); AST 71 U/L (14-36); African American GFR (CKD) >90 (>60 ml/min/1.73 sqM); Albumin 3.9 g/dL (3.5-5.0); Albumin/Globulin Ratio 1.3; Alkaline Phosphatase 79 U/L (38-126); Anion Gap 9 mmol/L; Blood Urea Nitrogen 9 mg/dL (7-17); Calcium 8.9 mg/dL (8.4-10.2); Carbon Dioxide 25 mmol/L (22-30); Chloride 107 mmol/L (98-107); Globulin 2.9 g/dL; Glucose 128 mg/dL (74-99); Non-African American GFR(CKD) >90 (>60 ml/min/1.73 sqM); Potassium 3.3 mmol/L (3.5-5.1); Sodium 141 mmol/L (137-145); Total Bilirubin 0.9 mg/dL (0.2-1.3); Total Protein 6.8 g/dL (6.3-8.2)
[2023-05-30] MEDS: POTASSIUM CHLORIDE ER 20 MEQ TAB.ER PO STA (12:10)
--- NOTE | 2023-05-30 12:29 | P.DS ---
Providers Date of admission: 05/23/23 23:27 Expected date of discharge: 05/30/23 Attending physician: Jah Wiley MD Primary care physician: Stated None Hospital Course: Discharge Diagnosis: Polysubstance abuse with severe withdrawal symptoms. Patient was hospitalized with intractable nausea and vomiting secondary to symptoms of withdrawal. She r equired continuous IV fluid hydration and replacement of electrolyte imbalances. Patient has not had any further episodes of diarrhea or vomiting in greater than 24 hours. Patient strongly encouraged to avoid any and all use of drugs and including benzodiazepines and heroin/opioids. Patient being discharged with plans to go to [facility]. Hepatitis C with mild transaminitis. Hepatitis C IgG antibody reactive, HCV RNA qualitative detected. Hepatitis C RNA quantitative elevated at 19 and HCV RNA quantitative PCR log copies/mL is also elevated at 1.28. Recommend outpatient follow-up with health department or infectious disease physician after discharge from [facility] and patient has achieved sobriety with no further use of IVDA. Hypokalemia. Hypokalemia secondary to intractable vomiting and diarrhea from withdrawal. Vomiting and diarrhea has subsided. Electrolytes have been replace d. Potassium was 3.3 on day of discharge and patient was given 40 mEq of K-Dur prior to discharge. Refractory nausea and vomiting with dehydration and high anion gap metabolic ac idosis. Resolved. Asymptomatic sinus bradycardia Possible withdrawal seizure. Patient reports that she believes she may have had a withdrawal seizure at home. No seizure activity noted since arrival to our facility. Hospital Course: Patient is a 37-year-old female with a past medical history of polysubstance abuse including abuse of benzodiazepines and heroin. She presented to the emergency department on 05/23/2023 with intractable nausea and vomiting and generalized bodyaches and pains. She has reportedly been trying to quit using benzodiazepines and heroin but believes this resulted in a seizure. She underwent full evaluation in the emergency department. Vital signs upon arrival show blood pressure 117/78, heart rate 75, respiratory rate 16, temp 98.5 F, and SpO2 of 93% on room air. EKG completed showing normal sinus rhythm at [address] brain completed negative for acute intracranial process. During hospitalization patient reportedly went into a second-degree type II heart block and cardiology was consulted. Echocardiogram was completed showing an EF of 60% with no significant valvular or structural abnormality reported. Cardiology reviewing telemetry reports stating no evidence of second-degree AV block and no further inpatient recommendations from cardiac standpoint and signed off. Patient remained hospitalized with intractable nausea and vomiting requiring continuous IV fluid hydration and replacement of electrolyte imbalances. Patient has not had any further episodes of diarrhea or vomiting in greater than 24 hours. She reports feeling "wiped out" but states definitely feeling better today. Morning labs show CBC to remain unremarkable. BMP did show slightly low potassium of 3.3 otherwise normal findings. Magnesium normal findings at 2.0. Patient given K-Dur 40 mEq p.o. x 1 dose. Again she is no longer vomiting or experiencing diarrhea from withdrawal. She has had no further episodes of seizure-like activity. Patient is medically stable for discharge at this time. Vital signs as follows blood pressure 107/72, heart rate 75, respiratory rate 20, temp 98.0 F, and SpO2 of 96% on room air. Patient being discharged with reported plans to go to [facility] to complete her rehabilitation. Patient's Hepatitis C IgG antibody reactive, HCV RNA qualitative detected. Hepatitis C RNA quantitative elevated at 19 and HCV RNA quantitative PCR log copies/mL is also elevated at 1.28. Discussed results with infectious disease physician, recommend outpatient follow-up with health department or infectious disease physician, , after discharge from [facility] and patient has achieved sobriety with no further use of IVDA. Physical exam: Vital signs reviewed and stable. General: Nontoxic, no distress and appears stated age. Derm: Skin warm and dry, normal coloration for ethnicity. Head: Atraumatic, normocephalic and symmetric. Eyes: EOMs intact, no lid lag, and anicteric sclera Mouth: no lip lesions, mucus membranes moist Cardiovascular: regular rate and rhythm with normal S1S2, no murmur, positive posterior tibial pulses bilaterally, and cap refill < 2 seconds. Lungs: Respirations even, regular, and unlabored on room air. Lungs CTA bilate rally, no rhonchi, no rales, no wheezing, and no accessory muscle usage. Abdominal: soft, nontender to palpation, no guarding, no appreciable organomegaly Ext: ROM intact. No gross muscle atrophy, no edema, no contractures Neuro: Speech clear, face symmetrical and CN II-XII grossly intact with no noted focal neuro deficits Psych: Alert and oriented to person, place, time, and situation. Appropriate and pleasant affect. A total of 34 minutes of time were spent preparing this complex discharge summary. Pt was discharged on 05/30/2023 at 11:53 AM. Patient was seen independently by Nurse Practitioner. This document was prepared using [employer] dictation software. Please allow for errors in cribber while rare they do occur. Massimo Robbins NP rendered care for this patient independently, reviewed the findings and plan as documented in the note above. I did not physically speak with or examine the patient on this date. Patient Condition at Discharge: Stable Plan - Discharge Summary Discharge Rx Participant: Yes New Discharge Prescriptions: No Action No Known Home Medications Discharge Medication List No Known Home Medications 05/23/23 [History] Follow up Appointment(s)/Referral(s): Trent Alvarado III, MD [STAFF PHYSICIAN] - 1-2 Days (Please call office to set up new patient appointment ) Alejandra Lipscomb MD [STAFF PHYSICIAN] - As Needed (Once you have completed treatment at [facility] and obtained sobriety with no further use of IVDA, recommend following up with health department or infectious disease physician. Dr. Lipscomb for treatment of hepatitis C.) Patient Instructions/Handouts: Seizure/Epilepsy Discharge Instructions & Follow-Up, Hepatitis C (DC), Polysubstance Abuse (ED), Medical Clearance for Substance Abuse Treatment (DC) Activity/Diet/Wound Care/Special Instructions: At time of discharge patient needs to call [facility] - [place] - [phone] to see if she can be admitted right from the hospital or if she will get a future admission date. Activity: As tolerated. Take breaks as needed. Diet: Regular diet. Special Instructions: Strongly recommend avoiding any and all drug use especially benzodiazepines and opioids/heroin. Once you have completed treatment at [facility] and obtained sobriety with no further use of IVDA, recommend following up with health department or infectious disease physician for treatment of hepatitis C. [place] state law states no driving until seizure free for 6 months. It is also important to avoid climbing ladders, operating dangerous or heavy machinery or unsupervised swimming until seizure free for 6 months. Thank you for allowing us to participate in your care, it was truly a pleasure having you for our patient!!! Truly wishing you the best of luck on your journey towards sobriety!!! . Discharge/Stand Alone Forms: In Substance Abuse Facilities Discharge Disposition: HOME SELF-CARE
== END 2023-05-30 14:20 | disposition home or self-care (01) | DRG 773 ==
LOC: EC 20:40 → OBSVTOIN 23:27 → 3SCARD 23:27 → 4SSUR 05-26 22:41
PROVIDERS: ADMIT Internal Medicine; ATTEND Internal Medicine
PROC: 05HC33Z Insertion of Infusion Device into Left Basilic Vein, Percutaneous Approach (ICD-10-PCS; principal; 2023-05-24 16:15)
DX: F13.10 Sedative, hypnotic or anxiolytic abuse, uncomplicated (principal); F11.13 Opioid abuse with withdrawal; G40.89 Other seizures; E87.20 Acidosis, unspecified; B19.20 Unspecified viral hepatitis C without hepatic coma; E86.0 Dehydration; E87.6 Hypokalemia; R11.2 Nausea with vomiting, unspecified; R45.1 Restlessness and agitation; F10.239 Alcohol dependence with withdrawal, unspecified; F17.200 Nicotine dependence, unspecified, uncomplicated; F32.A Depression, unspecified; F41.9 Anxiety disorder, unspecified; I45.9 Conduction disorder, unspecified; R00.1 Bradycardia, unspecified; Z71.51 Drug abuse counseling and surveillance of drug abuser; Z28.310 Unvaccinated for COVID-19; Z28.21 Immunization not carried out because of patient refusal; Z71.3 Dietary counseling and surveillance
CPT/HCPCS: 36410; 36415; 70450; 76937; 80048; 80053; 80074; 80306; 80320; 81001; 83605; 83735; 84439; 84443; 85025; 85027; 87522; 93005; 93306; 94760; 96361; 96372; 96374; 96375; 96376; 99285

== ENCOUNTER 2023-06-15 14:09 | Observation (INO) | payer OTHER ==
[2023-06-15 14:57] LABS: Basophils % (A) 0 %; Eosinophils # (A) 0.1 k/uL (0-0.7); Eosinophils % (A) 0 %; HCT 44.7 % (34.0-46.0); HGB 15.3 gm/dL (11.4-16.0); Lymphocytes # (A) 1.3 k/uL (1.0-4.8); Lymphocytes % (A) 13 %; MCH 29.8 pg (25.0-35.0); MCHC 34.3 g/dL (31.0-37.0); MCV 86.9 fL (80.0-100.0); Mean Platelet Volume 8.5; Monocytes # (A) 0.2 k/uL (0-1.0); Monocytes % (A) 2 %; Neutrophils # (A) 8.6 k/uL (1.3-7.7); Neutrophils % (A) 84 %; Platelet Count 317 k/uL (150-450); RBC 5.15 m/uL (3.80-5.40); RDW 13.6 % (11.5-15.5); WBC 10.3 k/uL (3.8-10.6)
[2023-06-15] MEDS: ONDANSETRON 4 MG/2 ML VIAL IVP STA (15:02)
[2023-06-15] MEDS: KETOROLAC 15 MG/ML 1 ML VIAL IVP STA (15:04)
[2023-06-15] MEDS: SODIUM CHLORIDE 0.9% 1,000 ML IV STA ×2 (15:05)
[2023-06-15 15:08] LABS: ALT 127 U/L (4-34); African American GFR (CKD) >90 (>60 ml/min/1.73 sqM); Albumin 5.1 g/dL (3.5-5.0); Alcohol <10 mg/dL; Anion Gap 14 mmol/L; Blood Urea Nitrogen 15 mg/dL (7-17); Carbon Dioxide 22 mmol/L (22-30); Chloride 104 mmol/L (98-107); Glucose 105 mg/dL (74-99); Non-African American GFR(CKD) >90 (>60 ml/min/1.73 sqM); Phenytoin (Dilantin) <3.0 ug/mL; Sodium 140 mmol/L (137-145); Total Protein 8.9 g/dL (6.3-8.2)
[2023-06-15 15:13] LABS: Magnesium 2.2 mg/dL (1.6-2.3); Phosphorus 2.6 mg/dL (2.5-4.5); Potassium 4.4 mmol/L (3.5-5.1)
[2023-06-15 15:14] LABS: AST 117 U/L (14-36); Alkaline Phosphatase 147 U/L (38-126)
--- NOTE | 2023-06-15 15:33 | CT ---
EXAMINATION TYPE: CT brain wo con CT DLP: 1161.4 mGycm, Automated exposure control for dose reduction was used. DATE OF EXAM: 06/15/2023 3:24 PM COMPARISON: 05/23/2023. CLINICAL INDICATION:Female, 37 years old with history of seizure activity, Seizure activity TECHNIQUE: Brain: Axial CT images of the brain were obtained with coronal and sagittal reformats created and rev iewed. Contrast used: None. Oral contrast used: None. FINDINGS: Brain: Extra-axial spaces: No abnormal extra-axial fluid collections. Ventricular system: Within normal limits Cerebral parenchyma: No acute intraparenchymal hemorrhage or mass effect. The lópez-white junction is well differentiated. Cerebellum: Unremarkable. Mass effect: No evidence of midline shift. Intracranial vasculature: unremarkable Soft tissues: Normal. Calvarium/osseous structures: No depressed skull fracture. Paranasal sinuses and mastoid air cells: Mild scattered paranasal sinus disease. Visualized orbits: Orbital contents are intact. IMPRESSION: No acute intracranial process.
[2023-06-15] MEDS: PHENYTOIN SODIUM INJ 1,000 MG in SODIUM CHLORIDE 0.9% 100 ML IVPB STA (15:39)
--- NOTE | 2023-06-15 16:28 | ED ---
General Adult HPI - General Chief complaint: Seizure Stated complaint: Seizure, vomitting Time Seen by Provider: 06/15/23 14:30 Source: patient, EMS Mode of arrival: EMS Limitations: no limitations - History of Present Illness Initial comments: This 37-year-old female presents with complaint of multiple seizures. She apparently had 3 seizures this morning. She does have a history of seizures in the past. She normally takes Dilantin daily. She has been unable to take her medications due to nausea and vomiting. She states that she stopped taking heroin and Xanax 4 days ago. She states that she has been going through withdrawal ever since. She feels very weak and nauseated. She states that she is unable to eat or drink anything. She does complain of a headache. She denies any injuries during the seizures. She was just admitted to the hospital 3 weeks ago for similar symptomatology. She denies any alcohol abuse. She denies any other drug abuse. She relates that she takes approximately 6 mg of Xanax daily. She wants to stop taking the drugs. She has diffuse myalgias. She denies any fevers or chills. No other complaints or modifying factors. - Related Data Home Medications Medication Instructions Recorded Confirmed No Known Home Medications 05/23/23 05/23/23 Allergies Allergy/AdvReac Type Severity Reaction Status Date / Time No Known Allergies Allergy Verified 06/15/23 14:29 Review of Systems ROS Statement: Those systems with pertinent positive or pertinent negative responses have been documented in the HPI. ROS Other: All systems not noted in ROS Statement are negative. Past Medical History Additional Past Medical History / Comment(s): seizures History of Any Multi-Drug Resistant Organisms: None Reported Past Surgical History: Tubal Ligation Past Anesthesia/Blood Transfusion Reactions: No Reported Reaction Past Psychological History: Anxiety, Depression Smoking Status: Current every day smoker Past Alcohol Use History: None Reported Past Drug Use History: Heroin, Prescription Drug Abuse - Past Family History Father History Unknown: Yes General Exam - General Exam Comments Initial Comments: GENERAL: The patient is well nourished and well hydrated. VITAL SIGNS: Heart rate, blood pressure, respiratory rate reviewed as recorded in nurse's notes. EYES: Pupils are round and reactive. Extraocular movements are intact. No co njunctival / lid redness or swelling. ENT: No external evidence of injury, swelling, or ecchymosis. Airway is patent. Throat is clear. NECK: Nontender. No swelling or evidence of injury. No subcutaneous emphysema. Trachea is midline. No thyroid mass. HEART: Regular rate and rhythm. Good peripheral pulses. LUNGS/CHEST: Breath sounds clear and equal bilaterally. No rales, rhonchi, or wheezes. No ecchymosis, subcutaneous emphysema, or tenderness. ABDOMEN: Abdomen soft without tenderness. No palpable masses or organomegaly. No peritoneal signs. No abdominal wall swelling or ecchymosis. EXTREMITIES: No extremity tenderness. Normal muscle tone and function. No thoracolumbar tenderness. NEUROLOGIC: Sensation is grossly intact. Cranial nerve exam reveals face is symmetrical, tongue is midline, speech is clear. SKIN: No abrasions or ecchymosis is noted. No induration or masses noted. PSYCHIATRIC: Alert and oriented. Appropriate behavior and judgment. Limitations: no limitations Course Vital Signs 06/15/23 14:15 Temperature 98.1 F Pulse Rate 89 Respiratory 14 Rate Blood Pressure 118/81 O2 Sat by Pulse 97 Oximetry Medical Decision Making - Medical Decision Making The patient was seen and examined. All diagnostics are reviewed. CT scan of the brain does not show any acute abnormalities. The patient also had a EKG done which shows a normal sinus rhythm at a rate of 69. There is no acute ST or T wave changes noted per my interpretation. The intervals are all normal. The patient also had a laboratory analysis which overall is unremarkable. Patient normally takes Dilantin daily but has been unable to take it for the past sever al days. Dilantin 1 g intravenously is also given. She received some Toradol for pain. She requests something to help her sleep and melatonin will be ordered. Zofran is given for nausea. Overall, it is felt as though she would benefit from admission to the hospital for further evaluation, treatment, IV antiseizure medications, and neurology consultation. Case was discussed with internal medicine who is agreeable with admission. Was pt. sent in by a medical professional or institution (, PA, PERSONNEL RESEARCH PSYCHOLOGIST, urgent care, hospital, or intermediate...) When possible be specific @ -[No] Did you speak to anyone other than the patient for history (EMS, parent, family, police, friend...)? What history was obtained from this source @ -[No] Did you review nursing and triage notes (agree or disagree)? Why? @ -[I reviewed and agree with nursing and triage notes] Were old charts reviewed (outside hosp., previous admission, EMS record, old EKG, old radiological studies, urgent care reports/EKG's, intermediate records)? Report findings @ -Old charts were reviewed and it appears as though she was admitted for similar approximately 3 weeks ago. Differential Diagnosis (chest pain, altered mental status, abdominal pain women, abdominal pain men, vaginal bleeding, weakness, fever, dyspnea, syncope, headache, dizziness, GI bleed, back pain, seizure, CVA, palpatations, mental health, musculoskeletal)? @ -Seizure, benzodiazepine withdrawal seizure, status epilepticus, polysubstance abuse, heroin abuse, Xanax abuse, headache, head trauma, nausea, vomiting, dehydration. EKG interpreted by me (3pts min.). @ -[As above] X-rays interpreted by me (1pt min.). @ -[None done] CT interpreted by me (1pt min.). @ -CT scan of the brain was done and no acute processes noted per my interpretation. U/S interpreted by me (1pt. min.). @ -[None done] What testing was considered but not performed or refused? (CT, X-rays, U/S, labs)? Why? @ -[None] What meds were considered but not given or refused? Why? @ -[None] Did you discuss the management of the patient with other professionals (humberto cruz i.e. , PA, PERSONNEL RESEARCH PSYCHOLOGIST, lab, RT, psych nurse, social work case manager, electronic equipment maint tech, teacher, ground intelligence officer, cyanide case hardener)? Give summary @ -Case is discussed with internal medicine and they are agreeable with patient being admitted to the hospital. Was smoking cessation discussed for >3mins.? @ -[No] Was critical care preformed (if so, how long)? @ -[No] Were there social determinants of health that impacted care today? How? (Homelessness, low income, unemployed, alcoholism, drug addiction, transportation, low edu. Level, literacy, decrease access to med. care, shelter, rehab)? @ -[No] Was there de-escalation of care discussed even if they declined (Discuss DNR or withdrawal of care, Hospice)? DNR status @ -[No] What co-morbidities impacted this encounter? (DM, HTN, Smoking, COPD, CAD, Cancer, CVA, ARF, Chemo, Hep., AIDS, mental health diagnosis, sleep apnea, morbid obesity)? @ -Polysubstance abuse, hepatitis C Was patient admitted / discharged? Hospital course, mention meds given and route, prescriptions, significant lab abnormalities, going to OR and other pertinent info. @ -Patient was admitted to the hospital, please see above. Undiagnosed new problem with uncertain prognosis? @ -[No] Drug Therapy requiring intensive monitoring for toxicity (Heparin, Nitro, Insulin, Cardizem)? @ -[No] Were any procedures done? @ -[No] Diagnosis/symptom? @ -Recurrent seizures, polysubstance abuse, substance withdrawal, headache, myalgias, nausea and vomiting Acute, or Chronic, or Acute on Chronic? @ -Acute and chronic Uncomplicated (without systemic symptoms) or Complicated (systemic symptoms)? @ -Uncomplicated Side effects of treatment? @ -[No] Exacerbation, Progression, or Severe Exacerbation? @ -[No] Poses a threat to life or bodily function? How? (Chest pain, [place], NH, pneumonia, PE, COPD, DKA, ARF, appy, cholecystitis, CVA, Diverticulitis, Homicidal, Suicidal, threat to staff... and all critical care pts) @ -[No] - Lab Data Result diagrams: 06/15/23 14:49 06/15/23 14:49 Lab Results 06/15/23 06/15/23 Range/Units 14:49 14:49 WBC 10.3 (3.8-10.6) k/uL RBC 5.15 (3.80-5.40) m/uL Hgb 15.3 (11.4-16.0) gm/dL Hct 44.7 (34.0-46.0) % MCV 86.9 (80.0-100.0) fL MCH 29.8 (25.0-35.0) pg MCHC 34.3 (31.0-37.0) g/dL RDW 13.6 (11.5-15.5) % Plt Count 317 (150-450) k/uL MPV 8.5 Neutrophils % 84 % Lymphocytes % 13 % Monocytes % 2 % Eosinophils % 0 % Basophils % 0 % Neutrophils # 8.6 H (1.3-7.7) k/uL Lymphocytes # 1.3 (1.0-4.8) k/uL Monocytes # 0.2 (0-1.0) k/uL Eosinophils # 0.1 (0-0.7) k/uL Basophils # 0.0 (0-0.2) k/uL Sodium 140 (137-145) mmol/L Potassium 4.4 (3.5-5.1) mmol/L Chloride 104 (98-107) mmol/L Carbon Dioxide 22 (22-30) mmol/L Anion Gap 14 mmol/L BUN 15 (7-17) mg/dL Creatinine 0.60 (0.52-1.04) mg/dL Est GFR (CKD-EPI)AfAm >90 (>60 ml/min/1.73 sqM) Est GFR (CKD-EPI)NonAf >90 (>60 ml/min/1.73 sqM) Glucose 105 H (74-99) mg/dL Calcium 10.0 (8.4-10.2) mg/dL Phosphorus 2.6 (2.5-4.5) mg/dL Magnesium 2.2 (1.6-2.3) mg/dL Total Bilirubin 1.0 (0.2-1.3) mg/dL AST 117 H (14-36) U/L ALT 127 H (4-34) U/L Alkaline Phosphatase 147 H (38-126) U/L Total Protein 8.9 H (6.3-8.2) g/dL Albumin 5.1 H (3.5-5.0) g/dL Phenytoin <3.0 ug/mL Serum Alcohol <10 mg/dL Disposition Clinical Impression: Recurrent seizures, Heroin withdrawal, Benzodiazepine withdrawal, Headache, Nausea and vomiting Disposition: ADMITTED IP TO THIS HOSP Condition: Fair Is patient prescribed a controlled substance at d/c from ED?: No Referrals: None,Stated [Primary Care Provider] - 1-2 days Time of Disposition: 17:00
[2023-06-15] MEDS ORDERED: MELATONIN 3 MG TABLET PO PRN (17:02)
[2023-06-15] MEDS: ACETAMINOPHEN TAB 325 MG TAB PO PRN (17:57)
[2023-06-15] MEDS: ONDANSETRON 4 MG/2 ML VIAL IVP PRN (22:14)
[2023-06-15 22:48] LABS: Appearance,Urine Cloudy (Clear); Bilirubin,Urine 1+ (Negative); Blood,Urine Negative (Negative); Color,Urine Yellow; Glucose,Urine (UA) Negative (Negative); Ketones,Urine 2+ (Negative); Leukocyte Esterase,Urine Negative (Negative); Nitrite,Urine Negative (Negative); PH, Urine 5.5 (5.0-8.0); Protein,Urine Trace (Negative); Specific Gravity,Urine 1.027 (1.001-1.035)
[2023-06-15 22:49] LABS: Bacteria,Urine Rare /hpf; Mucus,Urine Many /hpf; RBC,Urine <1 /hpf (0-5); Squamous Epithelial Cell,Urine 5 /hpf (0-4); WBC,Urine 3 /hpf (0-5)
[2023-06-15] MEDS: LORazepam 0.5 MG TAB PO PRN (22:52)
[2023-06-15 22:56] LABS: Amphetamine Screen,Urine Not Detected (NotDetected); Barbiturate Screen,Urine Detected (NotDetected); Benzodiazepines Screen,Urine Not Detected (NotDetected); Cocaine Screen,Urine Not Detected (NotDetected); Methadone Screen, Urine Not Detected (NotDetected); Opiate Screen,Urine Not Detected (NotDetected); Oxycodone Screen, Urine Detected (NotDetected); Phencyclidine Screen,Urine Not Detected (NotDetected); Tricyclic Antidepressant,Urine Not Detected (NotDetected); Urn Cannabinoid Scrn Detected (NotDetected)
[2023-06-15] MEDS: METOCLOPRAMIDE 5 MG/ML 2 ML VIAL IVP PRN (23:38)
[2023-06-16] MEDS: IBUPROFEN 400 MG TAB PO PRN (05:41)
[2023-06-16] MEDS: ENOXAPARIN 40 MG/0.4 ML SYRINGE SQ SCH (09:38)
--- NOTE | 2023-06-16 12:27 | P.CNNES ---
History of Present Illness Consult date: 06/16/23 Requesting physician: Jose F Villafana Reason for Consult: seizure History of Present Illness: This is a 37-year-old woman with history of seizures and is not on any medication for the past 1 year, probably substance use who presents to the emergency department because of multiple seizure. Patient stated that she had seizures that was witnessed by her and does not recall the episodes. She had urinary incontinence. Per the ED team is states that she had 3 seizures. Patient states that she has a seizure since young age and she is supposed to be on Dilantin 200 mg twice a day but has not been on the medication for the past 1 year. She states that the instead of taking the seizure medication she's been taking Xanax 2 mg 4 times a day. She is also taking heroin. Last time she is a taking Xanax and her one was about 4 days ago. Initially she states she does not drink alcohol then upon further questioning she did state that she drinks very minimal alcohol use. She does smoke cigarettes. She denies the any other drug use. She denies followed up with a neurologist. Of note she stated that when she was on Dilantin in the past she was notified that there is a lot of side effects and she felt she was having headaches with the Dilantin. She does state that she has anxiety and depression that she feels uncontrolled but denies any suicidal or homicidal ideation or plans. She resides with her . Some of the workup during his hospital visit consisted of: White blood cells 10.3 thousand. AST of 117 ALT of 127 Sodium is 140, calcium 7.0, phosphorus 2.6, magnesium is 2.2. Initial serum glucose is 105. Urine tox screen is positive for oxycodone, barbiturates, marijuana. Serum alcohol was less than 10. Phenytoin level is less than 3. CT of the head is reported as no acute intracranial process. I personally reviewed the CT agree with the report. Review of Systems Review of system: The 12 point system was reviewed and apparent positive and negative per HPI. Past Medical History Additional Past Medical History / Comment(s): seizures, hepatitis C History of Any Multi-Drug Resistant Organisms: None Reported Past Surgical History: Tubal Ligation Past Anesthesia/Blood Transfusion Reactions: No Reported Reaction Past Psychological History: Anxiety, Depression Smoking Status: Current every day smoker Past Alcohol Use History: None Reported Past Drug Use History: Heroin, Prescription Drug Abuse Additional Drug Use History / Comment(s): Reported to stop heroin use 4 weeks ago - Past Family History Father History Unknown: Yes Medications and Allergies Home Medications Medication Instructions Recorded Confirmed Type No Known Home Medications 05/23/23 06/15/23 History Allergies Allergy/AdvReac Type Severity Reaction Status Date / Time No Known Allergies Allergy Verified 06/15/23 17:19 Physical Examination - Vital Signs Vital Signs: Vital Signs Temp Pulse Pulse Resp BP BP Pulse Ox 06/16/23 07:03 98.3 F 79 18 115/81 99 06/16/23 03:43 98.2 F 95 20 111/74 99 06/15/23 20:03 98.0 F 67 20 114/75 97 06/15/23 17:30 81 19 110/77 90 L 06/15/23 17:00 74 15 114/78 95 06/15/23 16:30 79 13 104/51 97 06/15/23 16:00 73 22 111/76 95 06/15/23 15:00 80 12 114/68 97 06/15/23 14:30 84 17 118/81 95 06/15/23 14:15 98.1 F 89 14 118/81 97 Intake and Output 06/15/23 06/16/23 06/16/23 22:59 06:59 14:59 Intake Total 220 Balance 220 Intake: Oral 220 Other: Voiding Method Bedside Commode # Voids 2 Weight 94.1 kg GENERAL: The patient is lying in bed and is not in acute distress. NEUROLOGICAL: Higher mental function: The patient is awake, alert, oriented to self, place and time. Patient is following commands. No aphasia and no neglect. Cranial nerves: The pupils are round, equal and reactive to light and accommodation. Visual kirk are full to confrontation throughout. Extraocular movement is intact no nystagmus is noted. Facial sensation is normal to touch throughout. The facial strength is normal throughout. Hearing is normal bilaterally to hand rub. Tongue is midline and moved [id number] without any difficulty. No dysarthria is noted. Shoulder shrug is normal bilaterally. Motor: The strength is 5 over 5 throughout. Normal tone and bulk. Cerebellum: Normal finger to nose heel to lópez bilaterally. Sensation: Sensation is normal to touch throughout. Reflexes (right/left): 2+ throughout. Plantars are downgoing bilaterally. Results - Laboratory Findings CBC and BMP: 06/15/23 14:49 06/15/23 14:49 Abnormal Lab Findings: Abnormal Labs 06/15/23 06/15/23 06/15/23 14:49 14:49 22:30 Neutrophils # 8.6 H Glucose 105 H AST 117 H ALT 127 H Alkaline Phosphatase 147 H Total Protein 8.9 H Albumin 5.1 H Urine Appearance Cloudy H Urine Protein Trace H Urine Ketones 2+ H Urine Bilirubin 1+ H Ur Squamous Epith Cells 5 H Urine Bacteria Rare H Urine Mucus Many H Ur Oxycodone Screen Detected H Ur Barbiturates Screen Detected H U Marijuana (THC) Screen Detected H Assessment and Plan Assessment: This is a 37-year-old woman with history of seizures with has not taken her seizure medication for the past 1 year, she states can hair when and Xanax with alcohol use in the last time she took Xanax and the heroin was about 4 days ago who presents because of 3 seizures. Breakthrough seizures is provoked due to withdrawal from drug use (Xanax and alcohol). Also due to medication noncompliance (last time took seizure medi cation was 1 year ago). History of seizures and is noncompliant taking medication. Polysubstance use (heroin, Xanax 2mg qid and alcohol use) Tobacco use Depression and anxiety Plan: I ordered a routine EEG. In the ED the patient was given Dilantin IV 1000 mg by the ED team. I'll not resume Dilantin since the patient stated that in the past she had headaches upon taken Dilantin as well as she was notified that there is so much side effects with the medication. I started her on Vimpat 50mg bid (not keppra since has depression and anxiety). Seizure precautions seizure pads Patient was notified per the [place] DMV because of the seizure, to avoid driving for 6 month until seizure-free, avoid heights, avoid using heavy machinery, avoids swimming unassisted. I placed her on thiamine 100 mg daily Patient was notified that she needs to follow-up with a neurologist as an outpatient for her seizures. Recommend to follow-up within 2 weeks. Because of her ongoing anxiety and depression and patient's is not seeking a psychiatrist as an outpatient consider psychiatric consultation. But definitely she needs to follow up with a therapist and psychiatrist. Patient was counseled on cessation of her polysubstance use. Will defer the rest of medical management to primary team. The plan is discussed with patient and her nurse. Thank you for the consultation. Time with Patient: Greater than 30
[2023-06-16] MEDS: THIAMINE 100 MG TAB PO SCH (13:31)
[2023-06-16] MEDS: LACOSAMIDE 50 MG TABLET PO SCH (13:31)
--- NOTE | 2023-06-16 18:03 | P.HPIM ---
History of Present Illness H&P Date: 06/16/23 Chief Complaint: Intractable seizures/vomiting 37-year-old female presents with complaint of multiple seizures. She apparently had 3 seizures this morning. She does have a history of seizures in the past. She normally takes Dilantin daily. She has been unable to take her medications due to nausea and vomiting. She states that she stopped taking heroin and Xanax 4 days ago. She states that she has been going through withdrawal ever since. She feels very weak and nauseated. She states that she is unable to eat or drink anything. She does complain of a headache. She denies any injuries during the seizures. She was just admitted to the hospital 3 weeks ago for similar symptomatology. She denies any alcohol abuse. She denies any other drug abuse. She relates that she takes approximately 6 mg of Xanax daily. She wants to stop taking the drugs. She has diffuse myalgias. She denies any fevers or chills. No other complaints or modifying factors. White blood cells 10.3 thousand. AST of 117 ALT of 127 Sodium is 140, calcium 7.0, phosphorus 2.6, magnesium is 2.2. Initial serum glucose is 105. Urine tox screen is positive for oxycodone, barbiturates, marijuana. Serum alcohol was less than 10. Phenytoin level is less than 3. CT of the head is reported as no acute intracranial process. Review of Systems REVIEW OF SYSTEMS: CONSTITUTIONAL: No fever, no malaise, no fatigue. HEENT: No recent visual problems or hearing problems. Denied any sore throat. CARDIOVASCULAR: No chest pain, orthopnea, PND, no palpitations, no syncope. PULMONARY: No shortness of breath, no cough, no hemoptysis. GASTROINTESTINAL: No diarrhea, no nausea, no vomiting, no abdominal pain. NEUROLOGICAL: No headaches, no weakness, no numbness. HEMATOLOGICAL: Denies any bleeding or petechiae. GENITOURINARY: Denies any burning micturition, frequency, or urgency. MUSCULOSKELETAL/RHEUMATOLOGICAL: Denies any joint pain, swelling, or any muscle pain. ENDOCRINE: Denies any polyuria or polydipsia. The rest of the 14-point review of systems is negative. Past Medical History Additional Past Medical History / Comment(s): seizures, hepatitis C History of Any Multi-Drug Resistant Organisms: None Reported Past Surgical History: Tubal Ligation Past Anesthesia/Blood Transfusion Reactions: No Reported Reaction Past Psychological History: Anxiety, Depression Smoking Status: Current every day smoker Past Alcohol Use History: None Reported Past Drug Use History: Heroin, Prescription Drug Abuse Additional Drug Use History / Comment(s): Reported to stop heroin use 4 weeks ago - Past Family History Father History Unknown: Yes Medications and Allergies Home Medications Medication Instructions Recorded Confirmed Type No Known Home Medications 05/23/23 06/15/23 History Allergies Allergy/AdvReac Type Severity Reaction Status Date / Time No Known Allergies Allergy Verified 06/15/23 17:19 Physical Exam Vitals: Vital Signs Temp Pulse Pulse Resp BP BP Pulse Ox 06/16/23 07:03 98.3 F 79 18 115/81 99 06/16/23 03:43 98.2 F 95 20 111/74 99 06/15/23 20:03 98.0 F 67 20 114/75 97 06/15/23 17:30 81 19 110/77 90 L 06/15/23 17:00 74 15 114/78 95 06/15/23 16:30 79 13 104/51 97 06/15/23 16:00 73 22 111/76 95 06/15/23 15:00 80 12 114/68 97 06/15/23 14:30 84 17 118/81 95 06/15/23 14:15 98.1 F 89 14 118/81 97 Intake and Output 06/15/23 06/16/23 06/16/23 22:59 06:59 14:59 Intake Total 220 Balance 220 Intake: Oral 220 Other: Voiding Method Bedside Commode # Voids 2 Weight 94.1 kg GENERAL: The patient is well nourished and well hydrated. EYES: Pupils are round and reactive. Extraocular movements are intact. No conjunctival / lid redness or swelling. ENT: No external evidence of injury, swelling, or ecchymosis. Airway is patent. Throat is clear. NECK: Nontender. No swelling or evidence of injury. No subcutaneous emphysema. Trachea is midline. No thyroid mass. HEART: Regular rate and rhythm. Good peripheral pulses. LUNGS/CHEST: Breath sounds clear and equal bilaterally. No rales, rhonchi, or wheezes. No ecchymosis, subcutaneous emphysema, or tenderness. ABDOMEN: Abdomen soft without tenderness. No palpable masses or organomegaly. No peritoneal signs. No abdominal wall swelling or ecchymosis. EXTREMITIES: No extremity tenderness. Normal muscle tone and function. No thoracolumbar tenderness. NEUROLOGIC: Sensation is grossly intact. Cranial nerve exam reveals face is symmetrical, tongue is midline, speech is clear. SKIN: No abrasions or ecchymosis is noted. No induration or masses noted. PSYCHIATRIC: Alert and oriented. Appropriate behavior and judgment. Results CBC & Chem 7: 06/15/23 14:49 06/15/23 14:49 Labs: Abnormal Lab Results - Last 24 Hours (Table) 06/15/23 06/15/23 06/15/23 Range/Units 14:49 14:49 22:30 Neutrophils # 8.6 H (1.3-7.7) k/uL Glucose 105 H (74-99) mg/dL AST 117 H (14-36) U/L ALT 127 H (4-34) U/L Alkaline Phosphatase 147 H (38-126) U/L Total Protein 8.9 H (6.3-8.2) g/dL Albumin 5.1 H (3.5-5.0) g/dL Urine Appearance Cloudy H (Clear) Urine Protein Trace H (Negative) Urine Ketones 2+ H (Negative) Urine Bilirubin 1+ H (Negative) Ur Squamous Epith Cells 5 H (0-4) /hpf Urine Bacteria Rare H (None) /hpf Urine Mucus Many H (None) /hpf Ur Oxycodone Screen Detected H (NotDetected) Ur Barbiturates Screen Detected H (NotDetected) U Marijuana (THC) Screen Detected H (NotDetected) Thrombosis Risk Factor Assmnt - Choose All That Apply Any of the Below Risk Factors Present?: Yes Each Factor Represents 1 point: Obesity (BMI >25) Thrombosis Risk Factor Assessment Total Risk Factor Score: 1 Thrombosis Risk Factor Assessment Level: Low Risk Assessment and Plan Assessment: 1. Recurrent seizures/history of seizure disorder -- Patient does have history of seizures and has not been taking antiseizure medication -- Reports she has been taking heroin and Xanax along with excessive alcohol use -Patient stopped taking Xanax and heroin about 4 days ago and presented to ER with 3 seizures -Patient received Dilantin 1000 mg IV in ED; has been evaluated by neurology and is recommended Vimpat 50 mg twice daily -- Patient remains on seizure precautions 2. Polysubstance abuse/heroin/benzodiazepine withdrawal -- Patient has been placed on thiamine 100 mg daily; [facility] protocol in place -- Counseling done on cessation of substance abuse 3. Intractable nausea/vomiting; likely related to polysubstance abuse and withdrawal; supportive care with IV Zofran and IV fluids 4. Transaminitis; likely related to chronic alcohol use -- We will monitor liver enzymes 5. Anxiety/depression; will consult psychiatry for recommendations DVT prophylaxis SCDs/subcu Lovenox CODE STATUS; full code
--- NOTE | 2023-06-17 00:46 | EEG ---
ELECTROENCEPHALOGRAM REPORT CLINICAL HISTORY: This is a 37-year-old woman with history of seizure, medication noncompliance, polysubstance abuse, who presents because of seizure. The video EEG is obtained to evaluate for seizure epileptiform activity. RELEVANT MEDICATION: Dilantin. EEG TYPE: A routine 21 channel EEG with video using the 10/20 electrode placement system. DESCRIPTION: Wakefulness is only obtained. During awake state, the posterior-dominant rhythm consists of [id number] voltage of 11 hertz that is well modulated and well sustained. There is no physiological stage 2 sleep architecture. There is no focal slowing. Interictal and ictal is none. ACTIVATION PROCEDURE: Photic stimulation did not evoke a posterior driving response. There is no abnormality during the photic stimulation. Hyperventilation is not performed. CLINICAL INTERPRETATION: This is a normal routine EEG. There is no focal slowing, epileptiform discharge, or seizure on the EEG. A normal routine EEG does not rule out underlying epilepsy. Clinical correlation is recommended. ZHEN / SHY: [id number] / MTDD
[2023-06-17 07:57] LABS: Basophils % (A) 0 %; Eosinophils # (A) 0.1 k/uL (0-0.7); Eosinophils % (A) 1 %; HCT 42.2 % (34.0-46.0); HGB 13.9 gm/dL (11.4-16.0); Lymphocytes # (A) 2.2 k/uL (1.0-4.8); Lymphocytes % (A) 33 %; MCH 28.6 pg (25.0-35.0); MCHC 32.8 g/dL (31.0-37.0); MCV 87.2 fL (80.0-100.0); Mean Platelet Volume 8.9; Monocytes # (A) 0.3 k/uL (0-1.0); Monocytes % (A) 5 %; Neutrophils % (A) 59 %; Platelet Count 303 k/uL (150-450); RBC 4.84 m/uL (3.80-5.40); RDW 13.7 % (11.5-15.5); WBC 6.7 k/uL (3.8-10.6)
[2023-06-17 08:48] LABS: African American GFR (CKD) >90 (>60 ml/min/1.73 sqM); Anion Gap 13 mmol/L; Blood Urea Nitrogen 12 mg/dL (7-17); Calcium 9.3 mg/dL (8.4-10.2); Carbon Dioxide 21 mmol/L (22-30); Chloride 107 mmol/L (98-107); Glucose 92 mg/dL (74-99); Non-African American GFR(CKD) >90 (>60 ml/min/1.73 sqM); Potassium 3.2 mmol/L (3.5-5.1); Sodium 141 mmol/L (137-145)
[2023-06-17] MEDS ORDERED: SODIUM CHLORIDE 0.9% 1,000 ML IV SCH (12:00)
[2023-06-17] MEDS: SODIUM CHLORIDE 0.9% 1,000 ML IV SCH (12:14)
--- NOTE | 2023-06-17 14:04 | P.PN ---
Subjective Progress Note Date: 06/17/23 37-year-old female presents with complaint of multiple seizures. She apparently had 3 seizures this morning. She does have a history of seizures in the past. She normally takes Dilantin daily. She has been unable to take her medications due to nausea and vomiting. She states that she stopped taking heroin and Xanax 4 days ago. She states that she has been going through withdrawal ever since. She feels very weak and nauseated. She states that she is unable to eat or drink anything. She does complain of a headache. She denies any injuries during the seizures. She was just admitted to the hospital 3 weeks ago for similar symptomatology. She denies any alcohol abuse. She denies any other drug abuse. She relates that she takes approximately 6 mg of Xanax daily. She wants to stop taking the drugs. She has diffuse myalgias. She denies any fevers or chills. No other complaints or modifying factors. White blood cells 10.3 thousand. AST of 117 ALT of 127 Sodium is 140, calcium 7.0, phosphorus 2.6, magnesium is 2.2. Initial serum glucose is 105. Urine tox screen is positive for oxycodone, barbiturates, marijuana. Serum alcohol was less than 10. Phenytoin level is less than 3. CT of the head is reported as no acute intracranial process. Objective - Vital Signs Vital signs: Vital Signs Temp 97.7 F 06/17/23 07:07 Pulse 72 06/17/23 08:00 Resp 18 06/17/23 08:00 BP 101/67 06/17/23 07:07 Pulse Ox 96 06/17/23 07:07 FiO2 Intake & Output 06/16/23 06/17/23 06/17/23 18:59 06:59 18:59 Intake Total 480 118 Output Total 1 1 Balance -1 480 117 Intake: Oral 480 118 Output: Stool 1 1 Other: Voiding Method Bedside Commode # Voids 2 4 # Bowel Movements 1 - Exam GENERAL: The patient is well nourished and well hydrated. EYES: Pupils are round and reactive. Extraocular movements are intact. No c onjunctival / lid redness or swelling. ENT: No external evidence of injury, swelling, or ecchymosis. Airway is patent. Throat is clear. NECK: Nontender. No swelling or evidence of injury. No subcutaneous emphysema. Trachea is midline. No thyroid mass. HEART: Regular rate and rhythm. Good peripheral pulses. LUNGS/CHEST: Breath sounds clear and equal bilaterally. No rales, rhonchi, or wheezes. No ecchymosis, subcutaneous emphysema, or tenderness. ABDOMEN: Abdomen soft without tenderness. No palpable masses or organomegaly. No peritoneal signs. No abdominal wall swelling or ecchymosis. EXTREMITIES: No extremity tenderness. Normal muscle tone and function. No thoracolumbar tenderness. NEUROLOGIC: Sensation is grossly intact. Cranial nerve exam reveals face is symmetrical, tongue is midline, speech is clear. SKIN: No abrasions or ecchymosis is noted. No induration or masses noted. PSYCHIATRIC: Alert and oriented. Appropriate behavior and judgment. - Labs CBC & Chem 7: 06/17/23 06:38 06/17/23 06:38 Labs: Abnormal Lab Results - Last 24 Hours (Table) 06/17/23 Range/Units 06:38 Potassium 3.2 L (3.5-5.1) mmol/L Carbon Dioxide 21 L (22-30) mmol/L Assessment and Plan Assessment: 1. Recurrent seizures/history of seizure disorder -- Patient does have history of seizures and has not been taking antiseizure medication -- Reports she has been taking heroin and Xanax along with excessive alcohol use -Patient stopped taking Xanax and heroin about 4 days ago and presented to ER with 3 seizures -Patient received Dilantin 1000 mg IV in ED; has been evaluated by neurology and is recommended Vimpat 50 mg twice daily -- Patient remains on seizure precautions 2. Polysubstance abuse/heroin/benzodiazepine withdrawal -- Patient has been placed on thiamine 100 mg daily; [facility] protocol in place -- Counseling done on cessation of substance abuse 3. Intractable nausea/vomiting; likely related to polysubstance abuse and withdrawal; supportive care with IV Zofran and IV fluids 4. Transaminitis; likely related to chronic alcohol use -- We will monitor liver enzymes 5. Anxiety/depression; will consult psychiatry for recommendations DVT prophylaxis SCDs/subcu Lovenox CODE STATUS; full code
--- NOTE | 2023-06-17 14:28 | P.PN ---
Subjective Progress Note Date: 06/17/23 I am following-up with patient and patient is doing well. No further neurological issues. No further seizures. Objective - Vital Signs Vital signs: Vital Signs Temp 97.7 F 06/17/23 07:07 Pulse 72 06/17/23 08:00 Resp 18 06/17/23 08:00 BP 101/67 06/17/23 07:07 Pulse Ox 96 06/17/23 07:07 FiO2 Intake & Output 06/16/23 06/17/23 06/17/23 18:59 06:59 18:59 Intake Total 480 118 Output Total 1 1 Balance -1 480 117 Intake: Oral 480 118 Output: Stool 1 1 Other: Voiding Method Bedside Commode # Voids 2 4 # Bowel Movements 1 - Exam GENERAL: The patient is lying in bed and is not in acute distress. NEUROLOGICAL: Higher mental function: The patient is awake, alert, oriented to self, place and time. Patient is following commands. No aphasia and no neglect. Cranial nerves: The pupils are round, equal and reactive to light and accommodation. Visual kirk are full to confrontation throughout. Extraocular movement is intact no nystagmus is noted. Facial sensation is normal to touch throughout. The facial strength is normal throughout. Hearing is normal bilaterally to hand rub. Tongue is midline and moved [id number] without any difficulty. No dysarthria is noted. Shoulder shrug is normal bilaterally. Motor: The strength is 5 over 5 throughout. Normal tone and bulk. Cerebellum: Normal finger to nose heel to lópez bilaterally. Sensation: Sensation is normal to touch throughout. Reflexes (right/left): 2+ throughout. Plantars are downgoing bilaterally. Some of the workup during his hospital visit consisted of: White blood cells 10.3 thousand. AST of 117 ALT of 127 Sodium is 140, calcium 7.0, phosphorus 2.6, magnesium is 2.2. Initial serum glucose is 105. Urine tox screen is positive for oxycodone, barbiturates, marijuana. Serum alcohol was less than 10. Phenytoin level is less than 3. CT of the head is reported as no acute intracranial process. I personally reviewed the CT agree with the report. Routine EEG is normal. - Labs CBC & Chem 7: 06/17/23 06:38 06/17/23 06:38 Labs: Abnormal Lab Results - Last 24 Hours (Table) 06/17/23 Range/Units 06:38 Potassium 3.2 L (3.5-5.1) mmol/L Carbon Dioxide 21 L (22-30) mmol/L Assessment and Plan Assessment: This is a 37-year-old woman with history of seizures with has not taken her seizure medication for the past 1 year, she states can hair when and Xanax with alcohol use in the last time she took Xanax and the heroin was about 4 days ago who presents because of 3 seizures. Breakthrough seizures is provoked due to withdrawal from drug use (Xanax and alcohol). Also due to medication noncompliance (last time took seizure medication was 1 year ago)---eeg is normal. History of seizures and is noncompliant taking medication. Polysubstance use (heroin, Xanax 2mg qid and alcohol use) Tobacco use Depression and anxiety Plan: In the ED the patient was given Dilantin IV 1000 mg by the ED team. I'll not resume Dilantin since the patient stated that in the past she had headaches upon taken Dilantin as well as she was notified that there is so much side effects with the medication. I started her on Vimpat 50mg bid n 06/16/23 (not keppra since has depression and anxiety). Seizure precautions seizure pads Patient was notified per the [place] DMV because of the seizure, to avoid driving for 6 month until seizure-free, avoid heights, avoid using heavy machinery, avoids swimming unassisted. Continue thiamine 100 mg daily Patient was notified that she needs to follow-up with a neurologist as an outpatient for her seizures. Recommend to follow-up within 2 weeks. Because of her ongoing anxiety and depression: Psychiatry is consulted. Definitely she needs to follow up with a therapist and psychiatrist as outpatient. Patient was counseled on cessation of her polysubstance use. Will defer the rest of medical management to primary team. The plan is discussed with patient and primary attending. There is no further neurological work-up. Will sign off. Please reconsult if needed. Time with Patient: Less than 30
[2023-06-17] MEDS: VENLAFAXINE HCL ER 37.5 MG CAP PO SCH (16:42)
[2023-06-18 06:07] LABS: African American GFR (CKD) >90 (>60 ml/min/1.73 sqM); Anion Gap 12 mmol/L; Blood Urea Nitrogen 7 mg/dL (7-17); Calcium 9.3 mg/dL (8.4-10.2); Carbon Dioxide 22 mmol/L (22-30); Chloride 108 mmol/L (98-107); Glucose 123 mg/dL (74-99); Non-African American GFR(CKD) >90 (>60 ml/min/1.73 sqM); Potassium 3.2 mmol/L (3.5-5.1); Sodium 142 mmol/L (137-145)
[2023-06-18 06:14] LABS: Basophils % (A) 0 %; Eosinophils # (A) 0.2 k/uL (0-0.7); Eosinophils % (A) 2 %; HCT 40.6 % (34.0-46.0); Lymphocytes # (A) 2.1 k/uL (1.0-4.8); Lymphocytes % (A) 22 %; MCH 29.3 pg (25.0-35.0); MCHC 34.6 g/dL (31.0-37.0); MCV 84.7 fL (80.0-100.0); Mean Platelet Volume 10.2; Monocytes # (A) 0.5 k/uL (0-1.0); Monocytes % (A) 6 %; Neutrophils # (A) 6.3 k/uL (1.3-7.7); Neutrophils % (A) 69 %; Platelet Count 292 k/uL (150-450); RBC 4.79 m/uL (3.80-5.40); WBC 9.2 k/uL (3.8-10.6)
--- NOTE | 2023-06-18 15:21 | P.CN ---
Psychiatric Consult - . Consult date: 06/17/23 Consult:: IDENTIFYING DATA: This patient is a 37 year old female, no kids, who was admitted for seizures in the context of Xanax and heroin withdrawal. REASON FOR REFERRAL: Psychiatry was consulted for depression and anxiety. HISTORY OF PRESENT ILLNESS: Per ER notes, the patient presented to the hospital "with complaint of multiple seizures. She apparently had 3 seizures this morning. She does have a history of seizures in the past. She normally takes Dilantin daily. She has been unable to take her medications due to nausea and vomiting. She states that she stopped taking heroin and Xanax 4 days ago. She states that she has been going through withdrawal ever since. She feels very weak and nauseated. She states that she is unable to eat or drink anything. She does complain of a headache. She denies any injuries during the seizures. She was just admitted to the hospital 3 weeks ago for similar symptomatology. She denies any alcohol abuse. She denies any other drug abuse. She relates that she takes approximately 6 mg of Xanax daily. She wants to stop taking the drugs. She has diffuse myalgias. She denies any fevers or chills. No other complaints or modifying factors." I evaluated patient on 06/17/23. She was found laying in bed resting. She is alert and oriented to person and place, but not time (incorrectly states it is May 2022). She reports depressed mood and affect is depressed, tearful. She reports anhedonia, excessive guilt, low energy, low concentration, decreased appetite, psychomotor slowing. She denies suicidal or homicidal ideations, intent or plan. She denies auditory or visual hallucinations. She reports her drug use is her main stressor, and states she doesn't want to use anymore. She reports high anxiety and "worrying all at once". She denies any auditory, visual hallucinations and denies any paranoia or delusions. Patients admits to using Heroin and Xanax and stopped taking them 4 days ago resulting in withdrawals. Her UDS on admission was positive for oxycodone, barbiturates, and THC. She drinks alcohol, unsure amount, BAL on admission was <10. She smokes tobacco about 1ppd. Vitals reviewed and are stable at time of evaluation. PAST PSYCHIATRIC HISTORY: Patient has a a history of depression, anxiety, substance abuse. Patient denies being on any psychiatric medications currently. She reports she previously Patient denies any previous psychiatric hospitalizations. Patient denies any psychiatric outpatient follow-up. Patient denies any history of suicide attempts in the past. She does admit to a history of self-harm of cutting while younger. PAST MEDICAL HISTORY: Additional Past Medical History / Comment(s): seizures, hepatitis C History of Any Multi-Drug Resistant Organisms: None Reported Past Surgical History: Tubal Ligation Past Anesthesia/Blood Transfusion Reactions: No Reported Reaction Past Psychological History: Anxiety, Depression Smoking Status: Current every day smoker Past Alcohol Use History: None Reported Past Drug Use History: Heroin, Prescription Drug Abuse Additional Drug Use History / Comment(s): Reported to stop heroin ALLERGIES: as per EMR. CHEMICAL DEPENDENCY HISTORY: as per HPI. FAMILY PSYCHIATRIC/SUBSTANCE USE HISTORY: Father - suicide by overdose on cocaine; Mother addicted to heroin, cocaine and pills; at the age of 51 yo from cirrhosis of the liver and COPD. SOCIAL HISTORY: Patient is from [place] and moved to [place] with her a few years ago. She reports feeling safe at home. Her support system is her and step-daughter. She does not have children of her own due to tubal ligation and ectopic . MENTAL STATUS EXAM: General Appearance: Patient appears to be stated age, disheveled, fair hygiene a nd grooming wearing hospital gown with fair eye contact. Behavior: Patient is calmly lying in bed without any agitated behavior, is tearful, a bit confused as to date. Speech: Patient's speech is fluent and non-pressured. Mood/Affect: Patient reports their mood is "depressed", affect is congruent Suicidality/Homicidality: Patient denies having any suicidal or homicidal ideation intent or plan. Perceptions: Patient denies any visual hallucinations and denies any auditory hallucinations. Though content/process: There is no evidence of any delusional thought content and thought process is linear. Memory and concentration: AOX2, grossly intact for the purposes of this session. Judgment and insight: fair/poor IMPRESSIONS: Delirium, multifactorial (seizures, polysubstance abuse and withdrawals, transaminitis, dehydration) Major depressive disorder, recurrent, moderate Rule-out substance induced depressive disorder Anxiety disorder, unspecified Opioid use disorder, severe Sedative/hypnotic/anxiolytic (Xanax) use disorder, severe Tobacco use disorder PLAN: -At this time patient DOES NOT meet criteria for inpatient psychiatric admission. -Patient DOES NOT have decision making capacity at this time and is unable to reason through and communicate/appreciate the risks, benefits and alternatives to treatment. -Delirium precautions recommended with patient including - avoiding use of narcotics and [employer] REPA[employer]ER sedatives, limit anticholinergic medications when possible, frequent re-orientation, minimize use of restraints, open window shades during the day and close them at night -Would recommend the following medication changes/additions: Start Effexor 37.5 mg daily in the AM. Will start Effexor XR at a low dose due to recent nausea/vomiting and seizures, with plan to increase as tolerated. -CIWA protocol with PRN Ativan for alcohol/benzodiazepine withdrawal. Continue to monitor vital signs. -Continue to reevaluate safety and initiate sitter if safety concerns arise. -willow worker to provide patient with outpatient mental health/psychiatry resources for appropriate follow up upon discharge. -Order Administrator spoke with patient about substance abuse and the harmful effects on medical and mental health, patient verbally understood and agreed. -willow worker to provide patient substance use treatment resources including AA/NA meetings in the community. -willow worker to provide patient with access line number to call for inpatient substance rehab. -Communicated plan to patient's nurse -Will continue to follow along -Please contact with any questions.
[2023-06-18] MEDS: POTASSIUM CHLORIDE 20 MEQ in WATER FOR INJECTION 1 100ML.BAG IVPB STA (15:37)
[2023-06-18] MEDS: POTASSIUM CHLORIDE ER 20 MEQ TAB.ER PO STA (15:38)
--- NOTE | 2023-06-18 15:48 | P.PN ---
Subjective Progress Note Date: 06/18/23 37-year-old female presents with complaint of multiple seizures. She apparently had 3 seizures this morning. She does have a history of seizures in the past. She normally takes Dilantin daily. She has been unable to take her medications due to nausea and vomiting. She states that she stopped taking heroin and Xanax 4 days ago. She states that she has been going through withdrawal ever since. She feels very weak and nauseated. She states that she is unable to eat or drink anything. She does complain of a headache. She denies any injuries during the seizures. She was just admitted to the hospital 3 weeks ago for similar symptomatology. She denies any alcohol abuse. She denies any other drug abuse. She relates that she takes approximately 6 mg of Xanax daily. She wants to stop taking the drugs. She has diffuse myalgias. She denies any fevers or chills. No other complaints or modifying factors. White blood cells 10.3 thousand. AST of 117 ALT of 127 Sodium is 140, calcium 7.0, phosphorus 2.6, magnesium is 2.2. Initial serum glucose is 105. Urine tox screen is positive for oxycodone, barbiturates, marijuana. Serum alcohol was less than 10. Phenytoin level is less than 3. CT of the head is reported as no acute intracranial process. 06/18/2023 Patient is seen and evaluated in room at bedside; reports some improvement in nausea Vital signs are reviewed and remain stable Patient has been placed on a clear liquid diet given intractable nausea and vomiting; we will plan to slowly advance as tolerated Has been evaluated by psych and does not meet criteria for inpatient psychiatric admission; patient is recommended to be started on Effexor 37.5 mg daily with plans to escalate treatment once nausea and vomiting subsides --Remains on CIIN protocol with Ativan for alcohol/benzodiazepine withdrawal Possible discharge in next 24 to 48 hours if remains stable Objective - Vital Signs Vital signs: Vital Signs Temp 98.2 F 06/18/23 07:19 Pulse 76 06/18/23 07:40 Resp 06/18/23 07:40 BP 108/75 06/18/23 07:19 Pulse Ox 99 06/18/23 07:19 FiO2 Intake & Output 06/17/23 06/18/23 06/18/23 18:59 06:59 18:59 Intake Total 118 900 Output Total 1 1 Balance 117 900 -1 Intake: Oral 118 900 Output: Stool 1 1 Other: Voiding Method Bedside Commode Bedside Commode Bedside Commode # Voids 4 5 # Bowel Movements 0 - Exam GENERAL: The patient is well nourished and well hydrated. EYES: Pupils are round and reactive. Extraocular movements are intact. No conjunctival / lid redness or swelling. ENT: No external evidence of injury, swelling, or ecchymosis. Airway is patent. Throat is clear. NECK: Nontender. No swelling or evidence of injury. No subcutaneous emphysema. T rachea is midline. No thyroid mass. HEART: Regular rate and rhythm. Good peripheral pulses. LUNGS/CHEST: Breath sounds clear and equal bilaterally. No rales, rhonchi, or wheezes. No ecchymosis, subcutaneous emphysema, or tenderness. ABDOMEN: Abdomen soft without tenderness. No palpable masses or organomegaly. No peritoneal signs. No abdominal wall swelling or ecchymosis. EXTREMITIES: No extremity tenderness. Normal muscle tone and function. No thoracolumbar tenderness. NEUROLOGIC: Sensation is grossly intact. Cranial nerve exam reveals face is symmetrical, tongue is midline, speech is clear. SKIN: No abrasions or ecchymosis is noted. No induration or masses noted. PSYCHIATRIC: Alert and oriented. Appropriate behavior and judgment. - Labs CBC & Chem 7: 06/18/23 05:42 06/18/23 05:42 Labs: Abnormal Lab Results - Last 24 Hours (Table) 06/18/23 Range/Units 05:42 Potassium 3.2 L (3.5-5.1) mmol/L Chloride 108 H (98-107) mmol/L Creatinine 0.48 L (0.52-1.04) mg/dL Glucose 123 H (74-99) mg/dL Assessment and Plan Assessment: 1. Recurrent seizures/history of seizure disorder -- Patient does have history of seizures and has not been taking antiseizure medication -- Reports she has been taking heroin and Xanax along with excessive alcohol use -Patient stopped taking Xanax and heroin about 4 days ago and presented to ER with 3 seizures -Patient received Dilantin 1000 mg IV in ED; has been evaluated by neurology and is recommended Vimpat 50 mg twice daily -- Patient remains on seizure precautions 2. Polysubstance abuse/heroin/benzodiazepine withdrawal -- Patient has been placed on thiamine 100 mg daily; CIIN protocol in place -- Counseling done on cessation of substance abuse 3. Intractable nausea/vomiting; likely related to polysubstance abuse and withdrawal; supportive care with IV Zofran and IV fluids 4. Transaminitis; likely related to chronic alcohol use -- We will monitor liver enzymes 5. Anxiety/depression; will consult psychiatry for recommendations DVT prophylaxis SCDs/subcu Lovenox CODE STATUS; full code
[2023-06-19] MEDS: ONDANSETRON 4 MG TAB PO PRN (08:49)
[2023-06-19 10:43] LABS: African American GFR (CKD) >90 (>60 ml/min/1.73 sqM); Anion Gap 11 mmol/L; Basophils % (A) 0 %; Blood Urea Nitrogen 8 mg/dL (7-17); Calcium 9.7 mg/dL (8.4-10.2); Carbon Dioxide 22 mmol/L (22-30); Chloride 108 mmol/L (98-107); Eosinophils # (A) 0.2 k/uL (0-0.7); Eosinophils % (A) 2 %; Glucose 110 mg/dL (74-99); HCT 42.4 % (34.0-46.0); HGB 14.5 gm/dL (11.4-16.0); Lymphocytes # (A) 2.3 k/uL (1.0-4.8); Lymphocytes % (A) 27 %; MCH 29.5 pg (25.0-35.0); MCHC 34.1 g/dL (31.0-37.0); MCV 86.5 fL (80.0-100.0); Mean Platelet Volume 9.9; Monocytes # (A) 0.3 k/uL (0-1.0); Monocytes % (A) 4 %; Neutrophils # (A) 5.5 k/uL (1.3-7.7); Neutrophils % (A) 66 %; Non-African American GFR(CKD) >90 (>60 ml/min/1.73 sqM); Platelet Count 332 k/uL (150-450); Potassium 4.1 mmol/L (3.5-5.1); RDW 13.7 % (11.5-15.5); Sodium 141 mmol/L (137-145); WBC 8.4 k/uL (3.8-10.6)
--- NOTE | 2023-06-19 14:49 | P.PN ---
Progress Note - Text Progress Note Date: 06/19/23 Interval history: Patient was seen today for psychiatric follow-up. Patient continues to endorse depression and anxiety. She states that she is having withdrawal symptoms from the opiates/heroin and also from Xanax. She describes shaking in her hands. She was tearful at times and sobbing during the interaction. She states that she is "done with using drugs" and claims that she wants to get into rehab. She states that she is having difficulties with sleep and also appetite. At this time she wants to live for her family and her future and also sobriety. Denies any suicidal homicidal ideations intent or plan. Denying any auditory or visual hallucinations. Denying any side effects from the medications at this time. MENTAL STATUS EXAM: General Appearance: Patient appears to be mildly overweight, stated age, disheveled, fair hygiene and grooming wearing hospital gown with fair eye contact. Behavior: Patient is lying in bed, trembling and tearful, appears to be upset Speech: Patient's speech is fluent and non-pressured. Hesitant, soft tone Mood/Affect: Patient reports their mood is "depressed and anxious", affect is congruent Suicidality/Homicidality: Patient denies having any suicidal or homicidal ideation intent or plan. Perceptions: Patient denies any visual hallucinations and denies any auditory hallucinations. Though content/process: There is no evidence of any delusional thought content and thought process is linear. Focused on her symptoms and withdrawals Memory and concentration: AOX3, grossly intact for the purposes of this session. Judgment and insight: fair/poor, improving mildly IMPRESSIONS: Depressive disorder unspecified, rule out bipolar depression versus major depressive disorder versus substance induced depressive disorder Anxiety disorder, unspecified Opioid use disorder, severe, currently in withdrawal Benzodiazepine use disorder, severe, currently in withdrawal Tobacco use disorder PLAN: -At this time patient DOES NOT meet criteria for inpatient psychiatric admission. -Would recommend the following medication changes/additions: Increase Effexor 75 mg daily in the AM for mood/anxiety. Will start Librium 10 mg 3 times daily for benzodiazepine withdrawal with plan to taper off, Klonopin 0.1 mg every 8 hours as needed for opiate withdrawal, Vistaril 50 mg 3 times daily as needed for anxiety, Seroquel 50 mg nightly for mood stabilization/insomnia/appetite -CIWA protocol with PRN Ativan for alcohol/benzodiazepine withdrawal. Continue to monitor vital signs. -community development worker to provide patient with outpatient mental health/psychiatry resources for appropriate follow up upon discharge. -Ret[employer] spoke with patient about substance abuse and the harmful effects on medical and mental health, patient verbally understood and agreed. -community development worker to provide patient substance use treatment resources including AA/NA meetings in the community. -community development worker to provide patient with access line number to call for inpatient substance rehab. -Communicated plan to patient's nurse and nurse practitioner. -Will continue to follow along tomorrow -Please contact with any questions.
[2023-06-19] MEDS ORDERED: hydrOXYzine pamoate 25 MG CAP PO PRN (14:50)
[2023-06-19] MEDS: VENLAFAXINE HCL ER 37.5 MG CAP PO STA (16:22)
[2023-06-19] MEDS: QUEtiapine 50 MG TAB PO SCH (21:27)
--- NOTE | 2023-06-20 06:33 | P.PN ---
Subjective Progress Note Date: 06/19/23 37-year-old female presents with complaint of multiple seizures. She apparently had 3 seizures this morning. She does have a history of seizures in the past. She normally takes Dilantin daily. She has been unable to take her medications due to nausea and vomiting. She states that she stopped taking heroin and Xanax 4 days ago. She states that she has been going through withdrawal ever since. She feels very weak and nauseated. She states that she is unable to eat or drink anything. She does complain of a headache. She denies any injuries during the seizures. She was just admitted to the hospital 3 weeks ago for similar symptomatology. She denies any alcohol abuse. She denies any other drug abuse. She relates that she takes approximately 6 mg of Xanax daily. She wants to stop taking the drugs. She has diffuse myalgias. She denies any fevers or chills. No other complaints or modifying factors. White blood cells 10.3 thousand. AST of 117 ALT of 127 Sodium is 140, calcium 7.0, phosphorus 2.6, magnesium is 2.2. Initial serum glucose is 105. Urine tox screen is positive for oxycodone, barbiturates, marijuana. Serum alcohol was less than 10. Phenytoin level is less than 3. CT of the head is reported as no acute intracranial process. 06/18/2023 Patient is seen and evaluated in room at bedside; reports some improvement in nausea Vital signs are reviewed and remain stable Patient has been placed on a clear liquid diet given intractable nausea and vomiting; we will plan to slowly advance as tolerated Has been evaluated by psych and does not meet criteria for inpatient psychiatric admission; patient is recommended to be started on Effexor 37.5 mg daily with plans to escalate treatment once nausea and vomiting subsides --Remains on CIWA protocol with Ativan for alcohol/benzodiazepine withdrawal Possible discharge in next 24 to 48 hours if remains stable 06/19/2023 Patient is seen in follow-up today continuing to report nausea and vomiting with episodes of diarrhea. Patient currently on CIWA protocol for acute alcohol withdrawal as well as patient currently withdrawing from Xanax and heroin use. Patient was evaluated by psychiatry initially and does not meet criteria for inpatient psych floor and evaluated again by psychiatry recommending medication adjustments and continued withdrawal protocol. Patient has been encouraged to increase activity as tolerated and encourage small frequent meals. Discussed inpatient rehab and case management following providing resources. Will monitor overnight and adjust medications accordingly with psychiatry following. Review of systems: Constitutional: No reports of fatigue, fever, or chills Cardiovascular: No reports of chest pain or palpitations Respiratory: No reports of shortness of breath or cough GI: reports of nausea, reports vomiting, reports multiple episodes of diarrhea : No reports of dysuria or retention Neurovascular: reports of generalized weakness All medications have been reviewed Physical exam: Gen: This is a 37-year-old female who is awake, alert and oriented x 3, well- developed, well-nourished, unkept HEENT: Head is atraumatic, normocephalic. Pupils equal, round. Sclerae is anicteric. NECK: Supple. No JVD. No lymphadenopathy. No thyromegaly. LUNGS: Clear to auscultation. No wheezes or rhonchi. No intercostal retractions. HEART: Regular rate and rhythm. No murmur. ABDOMEN: Soft. Bowel sounds are present. No masses. No tenderness. EXTREMITIES: No pedal edema. No calf tenderness. NEUROLOGICAL: Patient is awake, alert and oriented x3. Cranial nerves 2 through 12 are grossly intact. Diffusely weak Assessment: -Recurrent seizures/history of seizure disorder and noncompliance with seizure medication -Polysubstance abuse/heroin/benzodiazepine withdrawal -Intractable nausea/vomiting; likely related to polysubstance abuse and withdra wal -Transaminitis; likely related to chronic alcohol use -Anxiety/depression -Obesity with a BMI of 36.7 -GI prophylaxis -DVT prophylaxis -full code Plan: Patient is continued on CIWA protocol with oral Ativan and being started on Librium taper Patient was evaluated by neurology and started on Vimpat and tolerating thus far. Patient will need outpatient follow-up with neurology and compliance with medications Patient evaluated by psychiatry and does not meet inpatient criteria although would like patient to remain hospitalized with medication adjustments as patient is continuing to withdraw status post heroin and Xanax use and making further adjustments to medications recommend monitoring overnight Counseled extensively on polysubstance abuse and strongly recommend inpatient rehab and patient is agreeable. Resources provided by case management and patient encouraged to call these numbers to arrange an intake appointment. Patient continues to have nausea with vomiting and diarrhea we will continue supportive care and antinausea medications Encouraged to increase activity as tolerated Encourage small frequent meals and if having continued abdominal pain with nausea and vomiting would recommend just ice chips and small sips of water Due to multiple complex medical issues, prognosis is guarded Possible discharge in the next 24 to 48 hours The impression and plan of care has been dictated by Maggie Rivas, Nurse Practitioner as directed. Dr. Juan MD I have performed a history and examination and MDM of this patient, discussed the same with the dictator, and agree with the dictator's assessment and plan as written ,documented as a scribe. Based on total visit time, I have performed more than 50% of the visit. Objective - Vital Signs Vital signs: Vital Signs Temp 98.1 F 06/19/23 13:51 Pulse 102 H 06/19/23 13:51 Resp 18 06/19/23 13:51 BP 127/92 06/19/23 13:51 Pulse Ox 98 06/19/23 13:51 FiO2 Intake & Output 06/18/23 06/19/23 06/19/23 18:59 06:59 18:59 Intake Total 650 1300 Output Total 1 1 Balance 649 1299 Intake: Oral 650 1300 Output: Stool 1 1 Other: Voiding Method Bedside Commode Bedside Commode Bedside Commode # Voids 3 4 - Labs CBC & Chem 7: 06/19/23 09:45 06/19/23 09:45 Labs: Abnormal Lab Results - Last 24 Hours (Table) 06/19/23 Range/Units 09:45 Chloride 108 H (98-107) mmol/L Glucose 110 H (74-99) mg/dL
[2023-06-20] MEDS: VENLAFAXINE HCL ER 75 MG CAP PO SCH (08:55)
--- NOTE | 2023-06-20 13:58 | P.PN ---
Progress Note - Text Progress Note Date: 06/20/23 Interval history: Patient was seen today for psychiatric follow-up. Patient was seen laying in bed, she appears to be improving in her affect. States that she is doing a bit better claims that she was able to tolerate some food today. States that her anxiety and mood have been mildly improving since yesterday. States that the medications have been helping. She did claim that she had some loose stool earlier today and believes that it was related to her withdrawal symptoms. She continues to remain motivated to go to rehab. She was sobbing less during the interview. We spoke about patient going to rehab and then being transition onto Suboxone or methadone to help with maintenance. She states that she slept fairly last night with the Seroquel. She is future oriented. Denies any suicidal homicidal ideations intent or plan. Denying any auditory or visual hallucinations. Denying any side effects from the medications at this time. MENTAL STATUS EXAM: General Appearance: Patient appears to be mildly overweight, stated age, improving hygiene fair hygiene and grooming wearing hospital gown with fair eye contact. Behavior: Patient is lying in bed, more directable today. Speech: Patient's speech is fluent and non-pressured. Improving Mood/Affect: Patient reports their mood is "better", affect is congruent, improving mildly Suicidality/Homicidality: Patient denies having any suicidal or homicidal ideation intent or plan. Perceptions: Patient denies any visual hallucinations and denies any auditory hallucinations. Though content/process: There is no evidence of any delusional thought content and thought process is linear. Focused on her symptoms, more future oriented today Memory and concentration: AOX3, grossly intact for the purposes of this session. Judgment and insight: improving mildly IMPRESSIONS: Depressive disorder unspecified, rule out bipolar depression versus major depressive disorder versus substance induced depressive disorder Anxiety disorder, unspecified Opioid use disorder, severe, currently in withdrawal Benzodiazepine use disorder, severe, currently in withdrawal Tobacco use disorder PLAN: -At this time patient DOES NOT meet criteria for inpatient psychiatric admission. -Would recommend the following medication changes/additions: Effexor 75 mg daily in the AM for mood/anxiety. Librium 10 mg 3 times daily for benzodiazepine withdrawal with plan to taper off, clonidine 0.1 mg every 8 hours as needed for opiate withdrawal, Vistaril 50 mg 3 times daily as needed for anxiety, Seroquel 50 mg nightly for mood stabilization/insomnia/appetite. Added Imodium every 6 hours as needed for loose stools. -CIWA protocol with PRN Ativan for alcohol/benzodiazepine withdrawal. Continue to monitor vital signs. -runner worker to provide patient with outpatient mental health/psychiatry resources for appropriate follow up upon discharge. -[employer]er spoke with patient about substance abuse and the harmful effects on medical and mental health, patient verbally understood and agreed. -runner worker to provide patient substance use treatment resources including AA/NA meetings in the community. -runner worker to provide patient with access line number to call for inpatient substance rehab. Patient is currently waiting on rehab at [facility]. It was recommended to patient strongly that she complete the program and get transition onto either methadone versus Suboxone to help with maintenance therapy. -Communicated plan to patient's nurse -At this time psychiatry will sign off -Please contact with any questions.
[2023-06-20] MEDS: LOPERAMIDE 2 MG CAP PO PRN (14:51)
[2023-06-20] MEDS: cloNIDine HCL 0.1 MG TAB PO PRN (14:52)
[2023-06-20 16:35] VITALS: BP 150/62; PULSE 87; RESP 18; TEMP 97.7
--- NOTE | 2023-06-24 09:51 | P.DS ---
Providers Date of admission: 06/15/23 17:08 Expected date of discharge: 06/20/23 Attending physician: Maurizio Martinez Consults: 06/15/23 17:02 Consult Physician Routine Consulting Provider: Mickey Mahan Consult Reason/Comments: seizures Do you want consulting provider notified?: Yes 06/16/23 20:11 Consult Physician Routine Consulting Provider: Sumanth Sinha Consult Reason/Comments: deppression and anxiety Do you want consulting provider notified?: Yes, Notify in am Primary care physician: Stated None Hospital Course: Final diagnosis -Recurrent seizures/history of seizure disorder and noncompliance with seizure medication -Polysubstance abuse/heroin/benzodiazepine withdrawal -Intractable nausea/vomiting; likely related to polysubstance abuse and withdrawal -Transaminitis; likely related to chronic alcohol use, trending down -Anxiety/depression -Obesity with a BMI of 36.7 -GI prophylaxis -DVT prophylaxis -full code Discharge disposition Patient is being discharged in a stable condition with guarded prognosis to home. Patient will follow-up with Dr. Evert Carmona in the outpatient setting upon discharge. Patient is to continue with current medication adjustments. Close outpatient follow-up with [facility] as scheduled. Patient working with inpatient rehab for intake appointment. Total time taken is greater than 35 minutes. Hospital course This is a 37-year-old female who was recently admitted with intractable nausea and vomiting likely related to polysubstance abuse with acute. Patient had been taking Xanax as well as continuing to use heroin recently having withdrawals. Patient evaluated by psychiatry with adjustments to medications made recommending inpatient rehab and patient is agreeable. Patient is working with insurance to arrange for an intake appointment. Patient reports to feeling improved and tolerating diet with no further nausea or vomiting. Patient has been cleared by psychiatry for outpatient follow-up with [facility]. Please refer to other consultation notes for further HPI. Currently no reports of chest pain, shortness of breath, or palpitations. Patient is afebrile. No reports of nausea or vomiting and patient is tolerating diet. Patient will be discharged home today. Guarded prognosis and high risk for readmissions given patient's noncompliance and continued polysubstance use. Physical exam: Gen: This is a 37-year-old female who is awake, alert and oriented x 3, well- developed, well-nourished, obese HEENT: Head is atraumatic, normocephalic. Pupils equal, round. Sclerae is anicteric. NECK: Supple. No JVD. No lymphadenopathy. No thyromegaly. LUNGS: Clear to auscultation. No wheezes or rhonchi. No intercostal retractions. HEART: Regular rate and rhythm. No murmur. ABDOMEN: Soft. Bowel sounds are present. No masses. No tenderness. EXTREMITIES: No pedal edema. No calf tenderness. NEUROLOGICAL: Patient is awake, alert and oriented x3. Cranial nerves 2 through 12 are grossly intact. Please refer to medication reconciliation sheet for a list of medications. The impression and plan of care has been dictated by Maggie Rivas, Nurse Practitioner as directed. Dr. Juan MD I have performed a history and examination and MDM of this patient, discussed the same with the dictator, and agree with the dictator's assessment and plan as written ,documented as a scribe. Based on total visit time, I have performed more than 50% of the visit. Patient Condition at Discharge: Fair Plan - Discharge Summary Discharge Rx Participant: Yes New Discharge Prescriptions: New QUEtiapine [SEROquel] 50 mg PO HS #30 tab cloNIDine HCL [Catapres] 0.1 mg PO BID PRN 5 Days #10 tab PRN Reason: opioid w/d sx Venlafaxine HCl ER [Effexor XR] 75 mg PO DAILY #30 cap Loperamide [Imodium] 2 mg PO Q6H PRN #10 cap PRN Reason: Diarrhea Ibuprofen [Motrin] 400 mg PO Q6HR PRN #20 tab PRN Reason: Mild Pain Or Fever > 100.5 Acetaminophen Tab [Tylenol] 650 mg PO Q6HR PRN tab PRN Reason: Mild Pain Or Fever > 100.5 Lacosamide [Vimpat] 50 mg PO BID #60 tab Thiamine [Vitamin B-1] 100 mg PO DAILY #30 tab Ondansetron [Zofran] 4 mg PO Q8HR PRN #20 tab PRN Reason: Nausea And Vomiting chlordiazePOXIDE HCl [Librium] 10 mg PO TID 3 Days #6 capsule Discharge Medication List Acetaminophen Tab [Tylenol] 650 mg PO Q6HR PRN tab 06/20/23 [Rx] Ibuprofen [Motrin] 400 mg PO Q6HR PRN #20 tab 06/20/23 [Rx] Lacosamide [Vimpat] 50 mg PO BID #60 tab 06/20/23 [Rx] Loperamide [Imodium] 2 mg PO Q6H PRN #10 cap 06/20/23 [Rx] Ondansetron [Zofran] 4 mg PO Q8HR PRN #20 tab 06/20/23 [Rx] QUEtiapine [SEROquel] 50 mg PO HS #30 tab 06/20/23 [Rx] Thiamine [Vitamin B-1] 100 mg PO DAILY #30 tab 06/20/23 [Rx] Venlafaxine HCl ER [Effexor XR] 75 mg PO DAILY #30 cap 06/20/23 [Rx] chlordiazePOXIDE HCl [Librium] 10 mg PO TID 3 Days #6 capsule 06/20/23 [Rx] cloNIDine HCL [Catapres] 0.1 mg PO BID PRN 5 Days #10 tab 06/20/23 [Rx] Follow up Appointment(s)/Referral(s): Bindu Cotter MD [STAFF PHYSICIAN] - 1 Week (call office for follow up appt) [facility] [NON-STAFF] - 1 Week Patient Instructions/Handouts: Loperamide (By mouth), Ibuprofen (By mouth), Thiamine (By mouth), Venlafaxine (By mouth), Clonidine (Absorbed through the skin), Ondansetron (By mouth), Quetiapine (By mouth), Lacosamide (By mouth), Narcotic Withdrawal (DC) Activity/Diet/Wound Care/Special Instructions: Activity limited until follow-up Follow-up with primary care provider to establish on discharge Continue taking medications as prescribed [place] [facility] [place] Continue with follow-up with inpatient rehabs for intake appointment Continue with medications as prescribed avoid all alcohol And drug use Discharge/Stand Alone Forms: Outpatient Counseling, Inp Substance Abuse Facilities, Area PCPs Discharge Disposition: HOME SELF-CARE
== END 2023-06-20 17:23 | disposition home or self-care (01) ==
LOC: EC 14:09 → 4SSUR 17:08
PROVIDERS: ADMIT Internal Medicine; ATTEND Internal Medicine
DX: G40.911 Epilepsy, unspecified, intractable, with status epilepticus (principal); F11.23 Opioid dependence with withdrawal; F13.239 Sedative, hypnotic or anxiolytic dependence with withdrawal, unspecified; F33.1 Major depressive disorder, recurrent, moderate; E86.0 Dehydration; B19.20 Unspecified viral hepatitis C without hepatic coma; F17.210 Nicotine dependence, cigarettes, uncomplicated; F10.90 Alcohol use, unspecified, uncomplicated; E66.9 Obesity, unspecified; Z68.36 Body mass index [BMI] 36.0-36.9, adult; F41.9 Anxiety disorder, unspecified; Y90.0 Blood alcohol level of less than 20 mg/100 ml; Z91.148 Patient's other noncompliance with medication regimen for other reason; Z71.51 Drug abuse counseling and surveillance of drug abuser
CPT/HCPCS: 96376 ×6; 96361 ×5; 96372 ×5; 96375 ×2; 96365; 99285; 36415; 95816; 93005; 36410; 76937; 80053; 80048 ×3; 80185; 83735; 84100; 85025 ×4; 81001; 80306; 80320; 70450; G0378 ×6; J1165; J2765 ×6; J2405 ×6; J1650 ×5; J1885